=== PATIENT | female | born 1950 | race Caucasian/White ===

== ENCOUNTER 2019-11-14 08:00 | Inpatient (IN) | payer OTHER, BC ==
[2019-12-17] MEDS ORDERED: GENTAMICIN SO4 80 MG/2 ML VIAL ONE (07:50)
[2019-12-17] MEDS ORDERED: LIDOCAINE 1%-EPI 1:100,000 30 ML MDV IJ ONE (07:50)
[2019-12-17] MEDS ORDERED: THROMBIN (BOVINE) 20,000 UNIT VIAL TP ONE (07:51)
--- NOTE | 2019-12-17 08:01 | HP ---
History & Physical Update - History History: No Change - Physical Physical: No Change - Assessment Assessment: No Change - Plan Plan: No Change (Full H&P in chart from 12/11/19)
[2019-12-17] MEDS ORDERED: MIDAZOLAM HCL 2 MG/2 ML SINGLE DOSE VIAL ONE (08:08)
[2019-12-17] MEDS ORDERED: ROCURONIUM BROMIDE 50 MG/5 ML SYRINGE ONE ×2 (08:08→09:32)
[2019-12-17] MEDS ORDERED: ceFAZolin SODIUM 1 GM VIAL ONE ×2 (08:10→18:38)
[2019-12-17] MEDS ORDERED: ETOMIDATE 20 MG/10 ML AMPUL IVPUSH ONE (08:10)
[2019-12-17] MEDS ORDERED: VANCOMYCIN 1,000 MG VIAL (RESTRICTED TO ID ONLY) ONE (08:10)
[2019-12-17] MEDS ORDERED: SODIUM CHLORIDE 0.9% P/F 10 ML VIAL IJ ONE (08:42)
[2019-12-17] MEDS ORDERED: VANCOMYCIN 1,000 MG VIAL (RESTRICTED TO ID ONLY) IVPB ONE (08:45)
[2019-12-17] MEDS ORDERED: ceFAZolin SODIUM 1 GM VIAL IVPB ONE (08:47)
[2019-12-17] MEDS ORDERED: ONDANSETRON 4 MG/2 ML VIAL ONE (08:49)
[2019-12-17] MEDS ORDERED: LIDOCAINE 1%/EPI 1:100000 (50 ML MULTI DOSE VIAL) INF ONE (08:52)
[2019-12-17] MEDS ORDERED: DESFLURANE GAS 240 ML BOTTLE IH ONE (08:54)
[2019-12-17] MEDS ORDERED: THROMBIN (BOVINE) 5,000 UNIT VIAL TP ONE (09:15)
[2019-12-17] MEDS ORDERED: PHENYLEPHRINE HCL 10 MG/1 ML SINGLE DOSE VIAL ONE (09:16)
[2019-12-17] MEDS ORDERED: GENTAMICIN SO4 80 MG/2 ML VIAL IVPB ONE (09:25)
[2019-12-17] MEDS ORDERED: HYDROGEN PEROXIDE 473 ML PO ONE (09:25)
[2019-12-17] MEDS ORDERED: BACITRACIN 50,000 UNITS VIAL TP ONE (09:25)
[2019-12-17] MEDS ORDERED: PROPOFOL 20 ML ONE (09:57)
[2019-12-17] MEDS ORDERED: NEOSTIGMINE METHYLSULFATE 0.5 MG/1 ML - 10 ML MDV ONE (11:03)
[2019-12-17] MEDS ORDERED: GLYCOPYRROLATE 0.2 MG/1 ML VIAL ONE ×2 (11:03→11:25)
[2019-12-17] MEDS ORDERED: ONDANSETRON 4 MG/2 ML VIAL IVPUSH PRN ×3 (11:34→11:51)
[2019-12-17] MEDS ORDERED: diphenhydrAMINE HCL 25 MG CAPSULE (FP) PO PRN (11:34)
[2019-12-17] MEDS ORDERED: ALBUTEROL SO4 HFA INHALER IH PRN (11:38)
[2019-12-17] MEDS ORDERED: PATIENT'S OWN MEDICATION (NON-FORMULARY) (Insulin Aspart [Novolog] 100 UNIT) SQ SCH (11:45)
[2019-12-17] MEDS ORDERED: ALBUTEROL SO4 2.5/IPRATROPIUM 0.5 INH SOL 3 ML VIAL.NEB. NEB PRN (11:47)
--- NOTE | 2019-12-17 11:50 | OP ---
Operative Note - Note: Operative Date: 12/17/19 Pre-Operative Diagnosis: cervical spondylosis Operation: C4-5 corpectomy with decompresson of spondylosis and reconstruction with Peek cage and anterior plate Post-Operative Diagnosis: Same as Pre-op Surgeon: Carlton Fletcher Refrigerator Repair Technician: Bk Chaney Anesthesiologist/BRAKE ASSEMBLER: Slava Leong Anesthesia: General Estimated Blood Loss (mls): 30 Fluid Volume Replaced (mls): 1,000 Operative Report Dictated: Yes
[2019-12-17] MEDS ORDERED: PROMETHAZINE HCL 25 MG/1 ML VIAL IVPUSH PRN (11:51)
[2019-12-17] MEDS ORDERED: DEXAMETHASONE SOD PHOSPHATE 4 MG/1 ML VIAL IVPUSH PRN (11:51)
[2019-12-17] MEDS ORDERED: PROMETHAZINE HCL 25 MG/1 ML VIAL IVPB PRN (11:51)
[2019-12-17] MEDS ORDERED: ALBUTEROL SO4 0.083% IH SOL 2.5 MG/3 ML VIAL.NEB. NEB ONE (11:52)
[2019-12-17] MEDS ORDERED: ALBUTEROL SO4 0.083% IH SOL 2.5 MG/3 ML VIAL.NEB. NEB PRN (11:54)
[2019-12-17] MEDS ORDERED: LACTATED RINGERS SOLUTION 1,000 ML IV SCH (12:00)
[2019-12-17] MEDS ORDERED: HYDROmorphone *PCA* 10MG/50ML DISP.SYRIN ONE (12:22)
[2019-12-17] MEDS: HYDROmorphone *PCA* 10MG/50ML DISP.SYRIN PCA SCH (12:26)
--- NOTE | 2019-12-17 14:30 | PN ---
Progress Note, Physician - Current Medication List Current Medications: Active Medications Albuterol Sulfate (Ventolin Hfa Inhaler -) 1 puff IH Q6H PRN PRN Reason: ASTHMA Albuterol Sulfate (Ventolin 0.083% Nebulizer Soln -) 1 amp NEB Q1H PRN PRN Reason: SHORT OF BREATH/WHEEZING Last Admin: 12/17/19 11:44 Dose: 1 amp Amlodipine Besylate (Norvasc -) 10 mg PO DAILY [facility] Ascorbic Acid (Vitamin C -) 1,000 mg PO DAILY [facility] Aspirin (Ecotrin -) 81 mg PO DAILY [facility] Atorvastatin Calcium (Lipitor -) 20 mg PO HS [facility] Budesonide/Formoterol Fumarate (Symbicort 160/4.5mcg -) 1 puff IH BID [facility] Dexamethasone Sodium Phosphate (Decadron Injection -) 4 mg IVPUSH ONCE PRN PRN Reason: NAUSEA AND/OR VOMITING Diphenhydramine HCl (Benadryl -) 25 mg PO Q6H PRN PRN Reason: FOR ITCHING Diphenhydramine HCl (Benadryl Injection -) 12.5 mg IVPUSH ONCE PRN PRN Reason: FOR ITCHING Docusate Sodium (Colace -) 100 mg PO TID [facility] Fentanyl (Sublimaze Injection -) 50 mcg IVPUSH [id number] PRN PRN Reason: PAIN-PACU ORDER X 4 DOSES ONLY Ferrous Sulfate (Feosol -) 325 mg PO DAILY [facility] Folic Acid (Folic Acid -) 1 mg PO DAILY [facility] Furosemide (Lasix -) 20 mg PO DAILY [facility] Heparin Sodium (Porcine) (Heparin -) 5,000 unit SQ TID [facility] Hydromorphone HCl (Hydromorphone 10 Mg/50 Ml-Ns) 10 mg SIDE FRAMER SIDE FRAMER [facility]; Protocol Stop: 12/24/19 11:51 Last Admin: 12/17/19 12:26 Dose: 10 mg Cefazolin Sodium (Ancef 1 Gm Premixed Ivpb -) 1 gm in 50 mls @ 100 mls/hr IVPB Q8H-IV [facility] Lactated Ringer's (Lactated Ringers Solution) 1,000 ml in 1,000 mls @ 125 mls/ hr IV ASDIR [facility] Cefazolin Sodium 1 gm/ (Dextrose) 50 mls @ 100 mls/hr IVPB Q8H-IV [facility] Stop: 12/18/19 17:59 Insulin Aspart (Novolog Vial Sliding Scale -) 1 vial SQ TIDAC [facility]; Protocol Lisinopril (Prinivil) 40 mg PO DAILY [facility] Metformin HCl (Glucophage -) 1,000 mg PO BIDAC [facility] Montelukast Sodium (Singulair -) 10 mg PO HS [facility] Non-Formulary Medication (Glucosamine/Chondr Choi A Sod [Osteo Bi-Flex Caplet]) 1 each PO DAILY [facility] Non-Formulary Medication (Insulin Degludec [Tresiba]) 80 unit SQ HS [facility] Non-Formulary Medication (Prednisone [Prednisone 50 Mg Tablets]) 50 mg PO ONCE [facility] Non-Formulary Medication (Ubidecarenone [Coq-10]) 100 mg PO DAILY [facility] Ondansetron HCl (Zofran Injection) 4 mg IVPUSH Q6H PRN PRN Reason: NAUSEA Ondansetron HCl (Zofran Injection) 4 mg IVPUSH Q4H PRN PRN Reason: NAUSEA AND/OR VOMITING Ondansetron HCl (Zofran Injection) 4 mg IVPUSH Q6H PRN PRN Reason: NAUSEA AND/OR VOMITING Stop: 12/18/19 11:50 Potassium Chloride (K-Dur -) 20 meq PO DAILY [facility] Promethazine HCl (Phenergan Injection -) 12.5 mg IVPB Q6H PRN PRN Reason: NAUSEA AND/OR VOMITING - Objective Vital Signs: Vital Signs Temperature 98.8 F 12/17/19 11:42 Pulse Rate 102 H 12/17/19 12:55 Respiratory Rate 16 12/17/19 12:55 Blood Pressure 136/65 12/17/19 12:55 O2 Sat by Pulse Oximetry (%) 98 12/17/19 12:55
--- NOTE | 2019-12-17 14:46 | PN ---
Progress Note, Physician Chief Complaint: Cervical Radiculopathy History of Present Illness: Previous notes and events reviewed sleeping but arouseable to verbal and tacile stimuli POD #0 C4 and C5 corpectomy with decompression of spondylosis and reconstruction with Peek cage and anterior plate c-collar in place RENALDO drain x 1 episode of hypoxia with O2 in high 80s, currently 94% 8L facemask~pulm consult patient denies SOB, dyspnea, or chest pain - Current Medication List Current Medications: Active Medications Albuterol Sulfate (Ventolin Hfa Inhaler -) 1 puff IH Q6H PRN PRN Reason: ASTHMA Albuterol Sulfate (Ventolin 0.083% Nebulizer Soln -) 1 amp NEB Q1H PRN PRN Reason: SHORT OF BREATH/WHEEZING Last Admin: 12/17/19 11:44 Dose: 1 amp Amlodipine Besylate (Norvasc -) 10 mg PO DAILY [facility] Ascorbic Acid (Vitamin C -) 1,000 mg PO DAILY [facility] Aspirin (Ecotrin -) 81 mg PO DAILY [facility] Atorvastatin Calcium (Lipitor -) 20 mg PO HS [facility] Budesonide/Formoterol Fumarate (Symbicort 160/4.5mcg -) 1 puff IH BID [facility] Dexamethasone Sodium Phosphate (Decadron Injection -) 4 mg IVPUSH ONCE PRN PRN Reason: NAUSEA AND/OR VOMITING Diphenhydramine HCl (Benadryl -) 25 mg PO Q6H PRN PRN Reason: FOR ITCHING Diphenhydramine HCl (Benadryl Injection -) 12.5 mg IVPUSH ONCE PRN PRN Reason: FOR ITCHING Docusate Sodium (Colace -) 100 mg PO TID [facility] Fentanyl (Sublimaze Injection -) 50 mcg IVPUSH [id number] PRN PRN Reason: PAIN-PACU ORDER X 4 DOSES ONLY Ferrous Sulfate (Feosol -) 325 mg PO DAILY [facility] Folic Acid (Folic Acid -) 1 mg PO DAILY [facility] Furosemide (Lasix -) 20 mg PO DAILY [facility] Heparin Sodium (Porcine) (Heparin -) 5,000 unit SQ TID [facility] Hydromorphone HCl (Hydromorphone 10 Mg/50 Ml-Ns) 10 mg TEACHER OF THE HEARING IMPAIRED TEACHER OF THE HEARING IMPAIRED [facility]; Protocol Stop: 12/24/19 11:51 Last Admin: 12/17/19 12:26 Dose: 10 mg Cefazolin Sodium (Ancef 1 Gm Premixed Ivpb -) 1 gm in 50 mls @ 100 mls/hr IVPB Q8H-IV [facility] Lactated Ringer's (Lactated Ringers Solution) 1,000 ml in 1,000 mls @ 125 mls/ hr IV ASDIR [facility] Cefazolin Sodium 1 gm/ (Dextrose) 50 mls @ 100 mls/hr IVPB Q8H-IV [facility] Stop: 12/18/19 17:59 Insulin Aspart (Novolog Vial Sliding Scale -) 1 vial SQ TIDAC [facility]; Protocol Lisinopril (Prinivil) 40 mg PO DAILY [facility] Metformin HCl (Glucophage -) 1,000 mg PO BIDAC [facility] Montelukast Sodium (Singulair -) 10 mg PO HS [facility] Non-Formulary Medication (Glucosamine/Chondr Choi A Sod [Osteo Bi-Flex Caplet]) 1 each PO DAILY [facility] Non-Formulary Medication (Insulin Degludec [Tresiba]) 80 unit SQ HS [facility] Non-Formulary Medication (Prednisone [Prednisone 50 Mg Tablets]) 50 mg PO ONCE [facility] Non-Formulary Medication (Ubidecarenone [Coq-10]) 100 mg PO DAILY [facility] Ondansetron HCl (Zofran Injection) 4 mg IVPUSH Q6H PRN PRN Reason: NAUSEA Ondansetron HCl (Zofran Injection) 4 mg IVPUSH Q4H PRN PRN Reason: NAUSEA AND/OR VOMITING Ondansetron HCl (Zofran Injection) 4 mg IVPUSH Q6H PRN PRN Reason: NAUSEA AND/OR VOMITING Stop: 12/18/19 11:50 Potassium Chloride (K-Dur -) 20 meq PO DAILY [facility] Promethazine HCl (Phenergan Injection -) 12.5 mg IVPB Q6H PRN PRN Reason: NAUSEA AND/OR VOMITING - Objective Vital Signs: Vital Signs Temperature 98.8 F 12/17/19 11:42 Pulse Rate 102 H 12/17/19 12:55 Respiratory Rate 16 12/17/19 12:55 Blood Pressure 136/65 12/17/19 12:55 O2 Sat by Pulse Oximetry (%) 98 12/17/19 12:55 Constitutional: Yes: No Distress Eyes: Yes: Conjunctiva Clear Neck: Yes: Other (c-collar) Cardiovascular: Yes: Tachycardia Respiratory: Yes: Regular, CTA Bilaterally Gastrointestinal: Yes: Soft, Hypoactive Bowel Sounds Genitourinary: Yes: Leung Present Musculoskeletal: Yes: Muscle Weakness Extremities: Yes: WNL Edema: No Neurological: Yes: Alert Psychiatric: Yes: Alert - ....Imaging Cat Scan: Report Reviewed Problem List - Problems (1) Asthma Assessment/Plan: -Pulmonary consult -bronchodilators -Symbicort -Singulair -O2 via face mask -keep Spo2 >90% Code(s): J45.909 - UNSPECIFIED ASTHMA, UNCOMPLICATED (2) HTN (hypertension) Assessment/Plan: -Lisinopril, Amlodipine Code(s): I10 - ESSENTIAL (PRIMARY) HYPERTENSION (3) Diabetes mellitus Assessment/Plan: -Metformin -ISS -Tresiba -HgA1c Code(s): E11.9 - TYPE 2 DIABETES MELLITUS WITHOUT COMPLICATIONS (4) Cervical radiculopathy Assessment/Plan: -Neurosurgery on board -POD #0 C4 and C5 corpectomy with decompression of spondylosis and reconstruction with Peek cage and anterior plate -pain control -c-collar -RENALDO drain x 1 with <25cc sanguinous output -Cefazolin -C-spine CT scan shows s/p corpectomy c4 and c5 vertebral body and anterior fusion c3-c6 in satisfactory alignment, fusion of C6-C7 vertebral body and posterior element Code(s): M54.12 - RADICULOPATHY, CERVICAL REGION Assessment/Plan see problem list SCDs
[2019-12-17] MEDS ORDERED: metFORMIN HCL 500 MG TABLET (FP) PO SCH (16:30)
[2019-12-17] MEDS ORDERED: INSULIN SLIDING SCALE (NOVOLOG) 1 VIAL SQ SCH (16:30)
[2019-12-17] MEDS: LACTATED RINGERS SOLUTION 1,000 ML/1,000 ML INFUS.BAG IV SCH (16:45)
--- NOTE | 2019-12-17 17:41 | CONSULT ---
Consultation: REQUESTING PROVIDER: CONSULT REQUEST: We have been asked to medically evaluate this patient for ICU management post operatively. HISTORY OF PRESENT ILLNESS: 69F PMH of DM, HTN, asthma, scoliosis with cervical spine and lumbar radiculopathy who present s/p C4-5 corpectomy with decompression of spondylosis and reconstruction with Peek cage and anterior plate. She had neck pain with radiation to her left shoulder, which has gotten worse. As per chart review she has numbness and tingling in her hand as well as decreased dental cream maker strength. She was able to tolerate anesthesia well, however there was concern initially that patient would not be extubated in the operating room. However patient was brought to the ICU extubated. She had 30 ml EBL, and 1000 ml fluid volume replaced. Patient currently complains of pain in her neck and difficulty swallowing. She denies chest pain, shortness of breath, abdominal pain, nausea, vomiting, and diarrhea. REVIEW OF SYSTEMS: CONSTITUTIONAL: Absent: fever, chills, diaphoresis, generalized weakness, malaise, loss of appetite, weight change HEENT: PRESENT: throat pain, throat swelling, difficulty swallowing Absent: rhinorrhea, nasal congestion, mouth swelling, ear pain, eye pain, visual changes CARDIOVASCULAR: Absent: chest pain, syncope, palpitations, irregular heart rate, lightheadedness, peripheral edema RESPIRATORY: Absent: cough, shortness of breath, dyspnea with exertion, orthopnea, wheezing, stridor, hemoptysis GASTROINTESTINAL: Absent: abdominal pain, abdominal distension, nausea, vomiting, diarrhea, constipation, melena, hematochezia GENITOURINARY: Absent: dysuria, frequency, urgency, hesitancy, hematuria, flank pain, genital pain MUSCULOSKELETAL: Absent: myalgia, arthralgia, joint swelling, back pain, neck pain SKIN: Absent: rash, itching, pallor HEMATOLOGIC/IMMUNOLOGIC: Absent: easy bleeding, easy bruising, lymphadenopathy, frequent infections ENDOCRINE: Absent: unexplained weight gain, unexplained weight loss, heat intolerance, cold intolerance NEUROLOGIC: Absent: headache, focal weakness or paresthesias, dizziness, unsteady gait, seizure, mental status changes, bladder or bowel incontinence PSYCHIATRIC: Absent: anxiety, depression, suicidal or homicidal ideation, hallucinations. PHYSICAL EXAMINATION Vital Signs - 24 hr 12/17/19 12/17/19 12/17/19 06:56 11:42 11:55 Temperature 97.9 F 98.8 F Pulse Rate 100 H 97 H 100 H Respiratory 18 20 16 Rate Blood Pressure 150/79 159/80 151/69 O2 Sat by Pulse 93 L 90 L 95 Oximetry (%) 12/17/19 12/17/19 12/17/19 12:10 12:25 12:26 Temperature Pulse Rate 100 H 102 H 102 H Respiratory 14 14 14 Rate Blood Pressure 171/69 H 136/58 L 136/58 L O2 Sat by Pulse 90 L 90 L 92 L Oximetry (%) 12/17/19 12/17/19 12/17/19 12:40 12:55 13:10 Temperature Pulse Rate 101 H 102 H 102 H Respiratory 16 16 20 Rate Blood Pressure 132/58 L 136/65 128/57 L O2 Sat by Pulse 91 L 98 96 Oximetry (%) 12/17/19 12/17/19 12/17/19 13:25 13:40 13:50 Temperature Pulse Rate 106 H 104 H 100 H Respiratory 20 16 14 Rate Blood Pressure 128/63 117/62 120/62 O2 Sat by Pulse 96 94 L 95 Oximetry (%) 12/17/19 12/17/19 12/17/19 14:15 14:45 15:15 Temperature Pulse Rate 104 H 103 H 104 H Respiratory 14 14 14 Rate Blood Pressure 131/57 L 131/60 120/60 O2 Sat by Pulse 92 L 95 94 L Oximetry (%) 12/17/19 12/17/19 12/17/19 15:25 15:45 16:15 Temperature 98.0 F Pulse Rate 104 H 102 H 104 H Respiratory 14 16 14 Rate Blood Pressure 120/60 126/64 133/63 O2 Sat by Pulse 94 L 94 L 93 L Oximetry (%) 12/17/19 16:30 Temperature Pulse Rate 104 H Respiratory 17 Rate Blood Pressure 140/78 O2 Sat by Pulse 90 L Oximetry (%) GENERAL: Awake, alert, and fully oriented, in mild distress. HEAD: Normal with no signs of trauma. NECK: Normal range of motion, supple without lymphadenopathy, JVD, or masses. Neck brace in place. Drain in place, sanginous drainage. LUNGS: Breath sounds equal, clear to auscultation bilaterally. No wheezes, and no crackles. No accessory muscle use. HEART: Regular rate and rhythm, normal S1 and S2 without murmur, rub or gallop. ABDOMEN: Absent bowel sounds, no guarding, no rebound, no masses. No hepatomegaly or splenomegaly. MUSCULOSKELETAL: Normal range of motion at all joints. No bony deformities or tenderness. No CVA tenderness. UPPER EXTREMITIES: 2+ pulses, warm, well-perfused. No cyanosis. No clubbing. Cap refill <2 seconds. No peripheral edema. LOWER EXTREMITIES: 2+ pulses, warm, well-perfused. No calf tenderness. No peripheral edema. NEUROLOGICAL: Cranial nerves II-XII intact. 5/5 strength b/l in upper and lower extremities. PSYCHIATRIC: Cooperative. Good eye contact. SKIN: Warm, dry, normal turgor, no rashes or lesions noted. Laboratory Results - last 24 hr 12/17/19 12/17/19 12/17/19 06:40 07:24 07:45 POC Glucometer 171 Blood Type Cancelled Cancelled Antibody Screen Cancelled Crossmatch 12/17/19 08:30 POC Glucometer Blood Type B POSITIVE Antibody Screen Negative Crossmatch See Detail Active Medications Generic Name Dose Route Start Last Admin Trade Name Freq PRN Reason Stop Dose Admin Albuterol Sulfate 1 puff 12/17/19 11:38 Ventolin Hfa Inhaler - IH Q6H PRN ASTHMA Albuterol Sulfate 1 amp 12/17/19 11:54 12/17/19 11:44 Ventolin 0.083% Nebulizer Soln - NEB 1 amp Q1H PRN Administration SHORT OF BREATH/WHEEZING Amlodipine Besylate 10 mg 12/18/19 10:00 Norvasc - PO DAILY [facility] Ascorbic Acid 1,000 mg 12/18/19 10:00 Vitamin C - PO DAILY [facility] Aspirin 81 mg 12/18/19 10:00 Ecotrin - PO DAILY [facility] Atorvastatin Calcium 20 mg 12/17/19 22:00 Lipitor - PO HS [facility] Budesonide/Formoterol Fumarate 1 puff 12/17/19 22:00 Symbicort 160/4.5mcg - IH BID [facility] Dexamethasone Sodium Phosphate 4 mg 12/17/19 11:51 Decadron Injection - IVPUSH ONCE PRN NAUSEA AND/OR VOMITING Diphenhydramine HCl 25 mg 12/17/19 11:34 Benadryl - PO Q6H PRN FOR ITCHING Diphenhydramine HCl 12.5 mg 12/17/19 11:51 Benadryl Injection - IVPUSH ONCE PRN FOR ITCHING Docusate Sodium 100 mg 12/17/19 14:00 Colace - PO TID [facility] Fentanyl 50 mcg 12/17/19 11:51 Sublimaze Injection - IVPUSH [id number] PRN PAIN-PACU ORDER X 4 DOSES ONLY Ferrous Sulfate 325 mg 12/18/19 10:00 Feosol - PO DAILY [facility] Folic Acid 1 mg 12/18/19 10:00 Folic Acid - PO DAILY [facility] Furosemide 20 mg 12/18/19 10:00 Lasix - PO DAILY [facility] Heparin Sodium (Porcine) 5,000 unit 12/17/19 14:00 Heparin - SQ TID [facility] Hydromorphone HCl 10 mg 12/17/19 12:00 12/17/19 12:26 Hydromorphone 10 Mg/50 Ml-Ns MANAGER PRESENTATION 12/24/19 11:51 10 mg MANAGER PRESENTATION [facility] Administration Protocol Cefazolin Sodium 1 gm in 50 mls @ 100 mls/hr 12/17/19 18:00 Ancef 1 Gm Premixed Ivpb - IVPB Q8H-IV [facility] Lactated Ringer's 1,000 ml in 1,000 mls @ 125 mls/hr 12/17/19 11:45 12/17/19 16:45 Lactated Ringers Solution IV 0 mls ASDIR [facility] Administration Cefazolin Sodium 1 gm/ 50 mls @ 100 mls/hr 12/17/19 18:00 Dextrose IVPB 12/18/19 17:59 Q8H-IV [facility] Insulin Aspart 1 vial 12/17/19 16:30 Novolog Vial Sliding Scale - SQ TIDAC [facility] Protocol Lisinopril 40 mg 12/18/19 10:00 Prinivil PO DAILY [facility] Metformin HCl 1,000 mg 12/17/19 16:30 Glucophage - PO BIDAC [facility] Montelukast Sodium 10 mg 12/17/19 22:00 Singulair - PO HS [facility] Non-Formulary Medication 1 each 12/18/19 10:00 Glucosamine/Chondr Choi A Sod [Osteo Bi-Flex Caplet] PO DAILY [facility] Non-Formulary Medication 80 unit 12/17/19 22:00 Insulin Degludec [Tresiba] SQ HS [facility] Non-Formulary Medication 50 mg 12/17/19 11:45 Prednisone [Prednisone 50 Mg Tablets] PO ONCE [facility] Non-Formulary Medication 100 mg 12/18/19 10:00 Ubidecarenone [Coq-10] PO DAILY [facility] Ondansetron HCl 4 mg 12/17/19 11:34 Zofran Injection IVPUSH Q6H PRN NAUSEA Ondansetron HCl 4 mg 12/17/19 11:51 Zofran Injection IVPUSH Q4H PRN NAUSEA AND/OR VOMITING Ondansetron HCl 4 mg 12/17/19 11:51 Zofran Injection IVPUSH 12/18/19 11:50 Q6H PRN NAUSEA AND/OR VOMITING Potassium Chloride 20 meq 12/18/19 10:00 K-Dur - PO DAILY [facility] Promethazine HCl 12.5 mg 12/17/19 11:51 Phenergan Injection - IVPB Q6H PRN NAUSEA AND/OR VOMITING ASSESSMENT/PLAN: 69F PMH of DM, HTN, asthma, scoliosis with cervical spine and lumbar radiculopathy who present s/p C4-5 corpectomy with decompression of spondylosis and reconstruction with Peek cage and anterior plate. POD #0 Neuro -Hx of cervical spine and lumbar spine radiculopathy -POD #0 s/p C4-C5 corpectomy with decompression of spondylosis and reconstruction -Pain management as per surgical and anesthesia team: hydromorphone MANAGER PRESENTATION pump. -Patient does not describe changes in sensation at the time, however is very sleepy. Reassess in the morning and compare to baseline sensation/weakness -Neurochecks -C-Collar must stay on atleast 23 hours a day. Cardiovascular -Hx of HTN and HLD -Continue home medications: ASA, lipitor, norvasc, lisinopril -Continue to monitor Pulmonary -Patient has hx of Asthma, uses inhalers daily. Never hospitalized for asthma -Continue home meds: singulair, symbicort - ventolin inhaler and nebulizer - Encourage use of Incentive spirometer - On NC 2LPM, maintain sats >92% GI -no acute issues -Diet ordered for patient however she has difficutly with swallowing - Continue to monitor Endo - Patient has hx of DM - ISS and ACHS monitoring - Levemir 80 HS starting tomorrow night after diet has resumed Renal - No acute issues - Follow up labs in the morning - Shore is in, monitor output - D/C shore when able to ambulate -Continue lasix DVT: Heparin SQ TID F: LR @ 125 E: Monitor CMP N: Soft diabetic diet Lines: Drain in place 12/17/2019, shore in place 12/17/2019 Dispo: We will continue to follow the patient. Thank you for this consultative opportunity. Visit type - Emergency Visit Emergency Visit: Yes ED Registration Date: 12/17/19 Care time: The patient presented to the Emergency Department on the above date and was hospitalized for further evaluation of their emergent condition. - New Patient This patient is new to me today: Yes Date on this admission: 12/17/19 - Critical Care Critical Care patient: Yes Total Critical Care Time (in minutes): 35 Critical Care Statement: The care of this patient involved high complexity decision making to prevent further life threatening deterioration of the patient's condition and/or to evaluate & treat vital organ system(s) failure or risk of failure. ATTENDING PHYSICIAN STATEMENT I saw and evaluated the patient. I reviewed the resident's note and discussed the case with the resident. I agree with the resident's findings and plan as documented. SUBJECTIVE: OBJECTIVE: ASSESSMENT AND PLAN:
[2019-12-17] MEDS ORDERED: DEXTROSE 5%-WATER - 50 ML IVPB ONE (18:38)
[2019-12-17] MEDS: INSULIN SLIDING SCALE (NOVOLOG) 1 VIAL SQ SCH (18:39)
[2019-12-17] MEDS: CEFAZOLIN 1 GM in DEXTROSE 5%-WATER - 50 ML IVPB SCH (18:40)
[2019-12-17] MEDS: MONTELUKAST NA 10 MG TABLET PO SCH (22:37)
[2019-12-17] MEDS: DOCUSATE SODIUM 100 MG CAPSULE (FP) PO SCH (22:37)
[2019-12-17] MEDS: HEPARIN NA (PORCINE) 5,000 UNITS/ML 1ML VIAL SQ SCH (22:37)
[2019-12-17] MEDS: ATORVASTATIN CA 20 MG TABLET (FP) PO SCH (22:37)
[2019-12-18] MEDS: LACTATED RINGERS SOLUTION 1,000 ML/1,000 ML INFUS.BAG IV SCH ×2 (01:05→13:01)
[2019-12-18] MEDS ORDERED: ceFAZolin SODIUM 1 GM VIAL ONE ×2 (01:12→16:53)
[2019-12-18] MEDS ORDERED: DEXTROSE 5%-WATER - 50 ML IVPB ONE ×2 (01:13→16:53)
[2019-12-18] MEDS: CEFAZOLIN 1 GM in DEXTROSE 5%-WATER - 50 ML IVPB SCH ×2 (01:53→12:00)
[2019-12-18] MEDS: BUDESONIDE/FORMETEROL FUMARATE 160/4.5 mcg INHALER IH SCH ×3 (01:54→21:30)
[2019-12-18 06:33] LABS: BASO % 0.2 % (0-2.0); HEMATOCRIT 39.9 % (32.4-45.2); HEMOGLOBIN 13.3 GM/dL (10.7-15.3); LYMPH % 4.5 % (8-40); MCH 31.7 pg (25.7-33.7); MCHC 33.3 g/dl (32.0-36.0); MEAN CELL VOLUME 94.9 fl (80-96); MEAN PLT VOLUME 7.6 fl (7.5-11.1); MONO % 9.4 % (3.8-10.2); NEUT % 85.9 % (42.8-82.8); PLATELET COUNT 277 K/MM3 (134-434); RDW 13.1 % (11.6-15.6)
[2019-12-18] MEDS: DOCUSATE SODIUM 100 MG CAPSULE (FP) PO SCH ×4 (06:51→22:44)
[2019-12-18] MEDS: HEPARIN NA (PORCINE) 5,000 UNITS/ML 1ML VIAL SQ SCH ×4 (06:51→22:44)
[2019-12-18 07:09] LABS: ALBUMIN 3.6 g/dl (3.4-5.0); BILIRUBIN,TOTAL 0.4 mg/dL (0.2-1); BLOOD UREA NITROGEN 19.9 mg/dL (7-18); CALCIUM 8.7 mg/dL (8.5-10.1); CREATININE 0.8 mg/dL (0.55-1.3); MAGNESIUM 2.2 mg/dL (1.8-2.4); PHOSPHOROUS 4.2 mg/dL (2.5-4.9); POTASSIUM 4.2 mmol/L (3.5-5.1); TOT PROT 6.7 g/dl (6.4-8.2)
[2019-12-18] MEDS: INSULIN SLIDING SCALE (NOVOLOG) 1 VIAL SQ SCH ×3 (08:26→16:46)
--- NOTE | 2019-12-18 08:32 | PN ---
Progress Note (short form) - Note Progress Note: ORTHOPAEDIC SPINE SURGERY POD #2 No acute events as per RN notes. Alert. Sitting up in bed. Wearing her C-collar as instructed. Has CLINICAL REHABILITATION LIAISON pump but wasn't using it. Patient educated on importance of use with regards to frequency. Expressed full understanding. Using her incentive spirometer. C/o incisional tenderness and some dysphagia. She is on a soft diet and tolerating. Denies n/v/f/c, CP, palpitation, SOB, RODRIGUEZ, hoarseness, UE numbness/tingling Last Vital Signs Temp Pulse Resp BP Pulse Ox 98.4 F 105 H 18 142/79 94 L 12/18/19 07:56 12/18/19 07:56 12/18/19 07:56 12/18/19 07:56 12/18/19 07:56 CBC, BMP 12/18/19 05:20 12/18/19 05:20 Gen: alert. nad Neck: dressing c/d/i. No soft tissue swelling. No erythema or drainage. No palpable hematoma Neuro: GMNVI. UE surgical training specialist strength 5/5 bilat LE: SCDs bilat. Soft. NT. Problem List - Problems (1) Cervical radiculopathy Assessment/Plan: POD #2 s/p C4-5 corpectomy with decompresson of spondylosis and reconstruction with Peek cage and anterior plate - Pain Management - DVT PPX: ASA 81 mg PO, TEDs/SCDs - Incentive Spirometer - Cervical collar to be worn 23/24hrs/day (may remove while bathing or eating meals) - Mobilize with PT - Monitor/Record drain output - f/u Labs - Cont care per ICU - Downgrae to floor at ICU discretion - Trial of Void -DC planning: [facility] [place] [facility] Above plan discussed with Dr. Anish Melchor and agrees. Code(s): M54.12 - RADICULOPATHY, CERVICAL REGION (2) Diabetes mellitus Code(s): E11.9 - TYPE 2 DIABETES MELLITUS WITHOUT COMPLICATIONS (3) HTN (hypertension) Code(s): I10 - ESSENTIAL (PRIMARY) HYPERTENSION
[2019-12-18] MEDS ORDERED: ASPIRIN COATED 81 MG TABLET.EC PO SCH (10:00)
[2019-12-18] MEDS ORDERED: ASCORBIC ACID 500 MG TABLET (FP) PO SCH (10:00)
[2019-12-18] MEDS ORDERED: LISINOPRIL 20 MG TABLET (FP) PO SCH (10:00)
[2019-12-18] MEDS ORDERED: amLODIPine BESYLATE 5 MG TABLET (FP) PO SCH (10:00)
[2019-12-18] MEDS ORDERED: FUROSEMIDE 20 MG TABLET (FP) PO SCH (10:00)
[2019-12-18] MEDS ORDERED: FOLIC ACID 1 MG TABLET (FP) PO SCH (10:00)
[2019-12-18] MEDS ORDERED: PATIENT'S OWN MEDICATION (NON-FORMULARY) (Ubidecarenone [Coq-10] 100 MG) PO SCH (10:00)
[2019-12-18] MEDS ORDERED: PATIENT'S OWN MEDICATION (NON-FORMULARY) (Glucosamine/Chondr Su A Sod [Osteo Bi-Flex Caple PO SCH (10:00)
[2019-12-18] MEDS ORDERED: FERROUS SO4 325 MG TABLET (FP) PO SCH (10:00)
[2019-12-18] MEDS ORDERED: POTASSIUM CHLORIDE TABS 20 MEQ TABLET.ER (FP) PO SCH (10:00)
--- NOTE | 2019-12-18 11:37 | PN ---
Progress Note, Physician Chief Complaint: AWAKE ALERT POD #1 COLLAR FOR CERVICAL SPINE IN PLACE 6/10 PAIN INTENSITY PER PATIENT - Current Medication List Current Medications: Active Medications Albuterol Sulfate (Ventolin Hfa Inhaler -) 1 puff IH Q6H PRN PRN Reason: ASTHMA Albuterol Sulfate (Ventolin 0.083% Nebulizer Soln -) 1 amp NEB Q1H PRN PRN Reason: SHORT OF BREATH/WHEEZING Last Admin: 12/17/19 11:44 Dose: 1 amp Amlodipine Besylate (Norvasc -) 10 mg PO DAILY [facility] Last Admin: 12/18/19 10:33 Dose: 10 mg Ascorbic Acid (Vitamin C -) 1,000 mg PO DAILY [facility] Last Admin: 12/18/19 10:33 Dose: 1,000 mg Aspirin (Ecotrin -) 81 mg PO DAILY [facility] Last Admin: 12/18/19 10:47 Dose: 81 mg Atorvastatin Calcium (Lipitor -) 20 mg PO HS [facility] Last Admin: 12/17/19 22:37 Dose: 20 mg Budesonide/Formoterol Fumarate (Symbicort 160/4.5mcg -) 1 puff IH BID [facility] Last Admin: 12/18/19 10:34 Dose: 1 puff Dexamethasone Sodium Phosphate (Decadron Injection -) 4 mg IVPUSH ONCE PRN PRN Reason: NAUSEA AND/OR VOMITING Diphenhydramine HCl (Benadryl -) 25 mg PO Q6H PRN PRN Reason: FOR ITCHING Diphenhydramine HCl (Benadryl Injection -) 12.5 mg IVPUSH ONCE PRN PRN Reason: FOR ITCHING Docusate Sodium (Colace -) 100 mg PO TID [facility] Last Admin: 12/18/19 06:51 Dose: 100 mg Fentanyl (Sublimaze Injection -) 50 mcg IVPUSH [id number] PRN PRN Reason: PAIN-PACU ORDER X 4 DOSES ONLY Ferrous Sulfate (Feosol -) 325 mg PO DAILY [facility] Last Admin: 12/18/19 10:33 Dose: 325 mg Folic Acid (Folic Acid -) 1 mg PO DAILY [facility] Last Admin: 12/18/19 10:33 Dose: 1 mg Furosemide (Lasix -) 20 mg PO DAILY [facility] Last Admin: 12/18/19 10:33 Dose: 20 mg Heparin Sodium (Porcine) (Heparin -) 5,000 unit SQ TID [facility] Last Admin: 12/18/19 06:51 Dose: 5,000 unit Hydromorphone HCl (Hydromorphone 10 Mg/50 Ml-Ns) 10 mg SOLAR PROJECT COORDINATION SPECIALIST SOLAR PROJECT COORDINATION SPECIALIST [facility]; Protocol Stop: 12/24/19 11:51 Last Admin: 12/17/19 12:26 Dose: 10 mg Cefazolin Sodium 1 gm/ (Dextrose) 50 mls @ 100 mls/hr IVPB Q8H-IV [facility] Lactated Ringer's (Lactated Ringers Solution) 1,000 ml in 1,000 mls @ 125 mls/ hr IV ASDIR [facility] Last Admin: 12/18/19 01:05 Dose: 125 mls/hr Cefazolin Sodium 1 gm/ (Dextrose) 50 mls @ 100 mls/hr IVPB Q8H-IV [facility] Stop: 12/18/19 17:59 Last Admin: 12/18/19 01:53 Dose: 100 mls/hr Insulin Aspart (Novolog Vial Sliding Scale -) 1 vial SQ TIDAC [facility]; Protocol Last Admin: 12/18/19 11:27 Dose: 4 units Lisinopril (Prinivil) 40 mg PO DAILY [facility] Last Admin: 12/18/19 10:42 Dose: 40 mg Montelukast Sodium (Singulair -) 10 mg PO HS [facility] Last Admin: 12/17/19 22:37 Dose: 10 mg Non-Formulary Medication (Insulin Degludec [Tresiba]) 80 unit SQ HS [facility] Non-Formulary Medication (Prednisone [Prednisone 50 Mg Tablets]) 50 mg PO ONCE [facility] Ondansetron HCl (Zofran Injection) 4 mg IVPUSH Q6H PRN PRN Reason: NAUSEA Ondansetron HCl (Zofran Injection) 4 mg IVPUSH Q4H PRN PRN Reason: NAUSEA AND/OR VOMITING Ondansetron HCl (Zofran Injection) 4 mg IVPUSH Q6H PRN PRN Reason: NAUSEA AND/OR VOMITING Stop: 12/18/19 11:50 Potassium Chloride (K-Dur -) 20 meq PO DAILY [facility] Last Admin: 12/18/19 10:42 Dose: 20 meq Promethazine HCl (Phenergan Injection -) 12.5 mg IVPB Q6H PRN PRN Reason: NAUSEA AND/OR VOMITING - Objective Vital Signs: Vital Signs Temperature 98.4 F 12/18/19 07:56 Pulse Rate 111 H 12/18/19 10:00 Respiratory Rate 21 H 12/18/19 10:00 Blood Pressure 160/83 12/18/19 10:00 O2 Sat by Pulse Oximetry (%) 94 L 12/18/19 07:56 Constitutional: Yes: Mild Distress HENT: Yes: Other (COLLAR) Cardiovascular: Yes: Regular Rate and Rhythm Respiratory: Yes: WNL Gastrointestinal: Yes: WNL Genitourinary: Yes: WNL Musculoskeletal: Yes: Muscle Weakness Edema: No Neurological: Yes: Pre-Existing Deficit Labs: CBC, BMP 12/18/19 05:20 12/18/19 05:20 Problem List - Problems (1) Cervical radiculopathy Code(s): M54.12 - RADICULOPATHY, CERVICAL REGION (2) Diabetes mellitus Code(s): E11.9 - TYPE 2 DIABETES MELLITUS WITHOUT COMPLICATIONS (3) HTN (hypertension) Code(s): I10 - ESSENTIAL (PRIMARY) HYPERTENSION Assessment/Plan NERUOSURGERY EVAL APPRECIATED PT EVAL MONITOR BGM DVT PROPHYLAXIS PAIN CONTROL INCENTIVE SPIROMETRY
--- NOTE | 2019-12-18 12:13 | PN ---
Teaching Attending Note Name of Resident: Mine Mustafa ATTENDING PHYSICIAN STATEMENT I saw and evaluated the patient. I reviewed the resident's note and discussed the case with the resident. I agree with the resident's findings and plan as documented. SUBJECTIVE: Pt seen and examined in the ICU. On HOUSEKEEPING WORKER pump. Tolerating liquids. No fevers, chills. OBJECTIVE: Vital Signs Period Temp Pulse Resp BP Sys/Dotson Pulse Ox Last 24 Hr 97.4 F-98.4 F 100-111 12-21 117-171/57-88 90-98 Intake & Output 12/15/19 12/16/19 12/17/19 12/18/19 23:59 23:59 23:59 23:59 Intake Total 1762.5 1050 Output Total 860 75 Balance 902.5 975 Weight 76.657 kg 79.379 kg Gen: NAD in cervical collar Heart: RRR Lung: decreased breath sounds at the bases Abd: soft, nontender Ext: no edema Drain serosanguinous CBC, BMP 12/18/19 05:20 12/18/19 05:20 Active Medications Albuterol Sulfate (Ventolin Hfa Inhaler -) 1 puff IH Q6H PRN PRN Reason: ASTHMA Albuterol Sulfate (Ventolin 0.083% Nebulizer Soln -) 1 amp NEB Q1H PRN PRN Reason: SHORT OF BREATH/WHEEZING Last Admin: 12/17/19 11:44 Dose: 1 amp Amlodipine Besylate (Norvasc -) 10 mg PO DAILY [facility] Last Admin: 12/18/19 10:33 Dose: 10 mg Ascorbic Acid (Vitamin C -) 1,000 mg PO DAILY [facility] Last Admin: 12/18/19 10:33 Dose: 1,000 mg Aspirin (Ecotrin -) 81 mg PO DAILY [facility] Last Admin: 12/18/19 10:47 Dose: 81 mg Atorvastatin Calcium (Lipitor -) 20 mg PO HS [facility] Last Admin: 12/17/19 22:37 Dose: 20 mg Budesonide/Formoterol Fumarate (Symbicort 160/4.5mcg -) 1 puff IH BID [facility] Last Admin: 12/18/19 10:34 Dose: 1 puff Dexamethasone Sodium Phosphate (Decadron Injection -) 4 mg IVPUSH ONCE PRN PRN Reason: NAUSEA AND/OR VOMITING Diphenhydramine HCl (Benadryl -) 25 mg PO Q6H PRN PRN Reason: FOR ITCHING Diphenhydramine HCl (Benadryl Injection -) 12.5 mg IVPUSH ONCE PRN PRN Reason: FOR ITCHING Docusate Sodium (Colace -) 100 mg PO TID [facility] Last Admin: 12/18/19 06:51 Dose: 100 mg Fentanyl (Sublimaze Injection -) 50 mcg IVPUSH [id number] PRN PRN Reason: PAIN-PACU ORDER X 4 DOSES ONLY Ferrous Sulfate (Feosol -) 325 mg PO DAILY [facility] Last Admin: 12/18/19 10:33 Dose: 325 mg Folic Acid (Folic Acid -) 1 mg PO DAILY [facility] Last Admin: 12/18/19 10:33 Dose: 1 mg Furosemide (Lasix -) 20 mg PO DAILY [facility] Last Admin: 12/18/19 10:33 Dose: 20 mg Heparin Sodium (Porcine) (Heparin -) 5,000 unit SQ TID [facility] Last Admin: 12/18/19 06:51 Dose: 5,000 unit Hydromorphone HCl (Hydromorphone 10 Mg/50 Ml-Ns) 10 mg HOUSEKEEPING WORKER HOUSEKEEPING WORKER [facility]; Protocol Stop: 12/24/19 11:51 Last Admin: 12/17/19 12:26 Dose: 10 mg Cefazolin Sodium 1 gm/ (Dextrose) 50 mls @ 100 mls/hr IVPB Q8H-IV [facility] Lactated Ringer's (Lactated Ringers Solution) 1,000 ml in 1,000 mls @ 125 mls/ hr IV ASDIR [facility] Last Admin: 12/18/19 01:05 Dose: 125 mls/hr Cefazolin Sodium 1 gm/ (Dextrose) 50 mls @ 100 mls/hr IVPB Q8H-IV [facility] Stop: 12/18/19 17:59 Last Admin: 12/18/19 01:53 Dose: 100 mls/hr Insulin Aspart (Novolog Vial Sliding Scale -) 1 vial SQ TIDAC [facility]; Protocol Last Admin: 12/18/19 11:27 Dose: 4 units Lisinopril (Prinivil) 40 mg PO DAILY [facility] Last Admin: 12/18/19 10:42 Dose: 40 mg Montelukast Sodium (Singulair -) 10 mg PO HS [facility] Last Admin: 12/17/19 22:37 Dose: 10 mg Non-Formulary Medication (Insulin Degludec [Tresiba]) 80 unit SQ HS [facility] Non-Formulary Medication (Prednisone [Prednisone 50 Mg Tablets]) 50 mg PO ONCE [facility] Ondansetron HCl (Zofran Injection) 4 mg IVPUSH Q6H PRN PRN Reason: NAUSEA Ondansetron HCl (Zofran Injection) 4 mg IVPUSH Q4H PRN PRN Reason: NAUSEA AND/OR VOMITING Potassium Chloride (K-Dur -) 20 meq PO DAILY [facility] Last Admin: 12/18/19 10:42 Dose: 20 meq Promethazine HCl (Phenergan Injection -) 12.5 mg IVPB Q6H PRN PRN Reason: NAUSEA AND/OR VOMITING ASSESSMENT AND PLAN: Cervical Spondylosis s/p C4-C5 Corpectomy/Decompression/Reconstruction with cage and anterior plate HTN DM Asthma - pain control - incentive spirometry - monitor drain output - PO as tolerated - PT - inhaled bronchodilators as needed - DVT prophylaxis - can monitor on floor
[2019-12-18] MEDS: HYDROmorphone *PCA* 10MG/50ML DISP.SYRIN PCA SCH (12:57)
--- NOTE | 2019-12-18 15:09 | PN ---
Progress Note (short form) - Note Progress Note: Anesthesia POD#1 S/P C4,C5 Corpectomy under GA and Dilaudid PSYCHOMETRIC EXAMINER VSS, using PSYCHOMETRIC EXAMINER for pain,some N/V. Pain is not controlled yet. No complications to anesthesia seen. A/P Continue the PSYCHOMETRIC EXAMINER for today. Jael Massey MD.
--- NOTE | 2019-12-18 16:27 | PN ---
Physical Exam: SUBJECTIVE: Patient seen and examined. Pt complains of mild difficulty swallowing and but pain controlled and motor strength significantly improved. OBJECTIVE: Vital Signs Period Temp Pulse Resp BP Sys/Dotson Pulse Ox Last 24 Hr 97.4 F-99.0 F 101-111 12-21 140-160/65-96 90-95 GENERAL: Awake, alert, and fully oriented, in mild distress. HEAD: Normal with no signs of trauma. NECK: Normal range of motion, supple without lymphadenopathy, JVD, or masses. Neck brace in place. Drain in place, sanginous drainage. LUNGS: Breath sounds equal, clear to auscultation bilaterally but decreased at the bases. HEART: Regular rate and rhythm, normal S1 and S2 without murmur, rub or gallop. ABDOMEN: Absent bowel sounds, no guarding, no rebound, no masses. No hepatomegaly or splenomegaly. MUSCULOSKELETAL: Normal range of motion at all joints. No bony deformities or tenderness. No CVA tenderness. UPPER EXTREMITIES: 2+ pulses, warm, well-perfused. No cyanosis. No clubbing. Cap refill <2 seconds. No peripheral edema. LOWER EXTREMITIES: 2+ pulses, warm, well-perfused. No calf tenderness. No peripheral edema. NEUROLOGICAL: Cranial nerves II-XII intact. 5/5 strength b/l in upper and lower extremities. PSYCHIATRIC: Cooperative. Good eye contact. SKIN: Warm, dry, normal turgor, no rashes or lesions noted. Laboratory Results - last 24 hr 12/17/19 12/18/19 12/18/19 18:10 05:20 05:20 WBC 15.0 H RBC 4.20 Hgb 13.3 Hct 39.9 MCV 94.9 MCH 31.7 MCHC 33.3 RDW 13.1 Plt Count 277 MPV 7.6 Absolute Neuts (auto) 12.8 H Neutrophils % 85.9 H Lymphocytes % 4.5 L Monocytes % 9.4 Eosinophils % 0.0 Basophils % 0.2 Nucleated RBC % 0 Sodium 138 Potassium 4.2 Chloride 102 Carbon Dioxide 30 Anion Gap 6 L BUN 19.9 H Creatinine 0.8 Est GFR (CKD-EPI)AfAm 86.57 Est GFR (CKD-EPI)NonAf 74.70 POC Glucometer 220 Random Glucose 195 H Calcium 8.7 Phosphorus 4.2 Magnesium 2.2 Total Bilirubin 0.4 AST 22 ALT 37 Alkaline Phosphatase 60 Total Protein 6.7 Albumin 3.6 12/18/19 12/18/19 06:35 11:25 WBC RBC Hgb Hct MCV MCH MCHC RDW Plt Count MPV Absolute Neuts (auto) Neutrophils % Lymphocytes % Monocytes % Eosinophils % Basophils % Nucleated RBC % Sodium Potassium Chloride Carbon Dioxide Anion Gap BUN Creatinine Est GFR (CKD-EPI)AfAm Est GFR (CKD-EPI)NonAf POC Glucometer 201 218 Random Glucose Calcium Phosphorus Magnesium Total Bilirubin AST ALT Alkaline Phosphatase Total Protein Albumin Active Medications Generic Name Dose Route Start Last Admin Trade Name Freq PRN Reason Stop Dose Admin Albuterol Sulfate 1 puff 12/17/19 11:38 Ventolin Hfa Inhaler - IH Q6H PRN ASTHMA Albuterol Sulfate 1 amp 12/17/19 11:54 12/17/19 11:44 Ventolin 0.083% Nebulizer Soln - NEB 1 amp Q1H PRN Administration SHORT OF BREATH/WHEEZING Amlodipine Besylate 10 mg 12/18/19 10:00 12/18/19 10:33 Norvasc - PO 10 mg DAILY [facility] Administration Ascorbic Acid 1,000 mg 12/18/19 10:00 12/18/19 10:33 Vitamin C - PO 1,000 mg DAILY [facility] Administration Aspirin 81 mg 12/18/19 10:00 12/18/19 10:47 Ecotrin - PO 81 mg DAILY [facility] Administration Atorvastatin Calcium 20 mg 12/17/19 22:00 12/17/19 22:37 Lipitor - PO 20 mg HS [facility] Administration Budesonide/Formoterol Fumarate 1 puff 12/17/19 22:00 12/18/19 10:34 Symbicort 160/4.5mcg - IH 1 puff BID [facility] Administration Dexamethasone Sodium Phosphate 4 mg 12/17/19 11:51 Decadron Injection - IVPUSH ONCE PRN NAUSEA AND/OR VOMITING Diphenhydramine HCl 25 mg 12/17/19 11:34 Benadryl - PO Q6H PRN FOR ITCHING Diphenhydramine HCl 12.5 mg 12/17/19 11:51 Benadryl Injection - IVPUSH ONCE PRN FOR ITCHING Docusate Sodium 100 mg 12/17/19 14:00 12/18/19 14:09 Colace - PO Not Given TID [facility] Fentanyl 50 mcg 12/17/19 11:51 Sublimaze Injection - IVPUSH [id number] PRN PAIN-PACU ORDER X 4 DOSES ONLY Ferrous Sulfate 325 mg 12/18/19 10:00 12/18/19 10:33 Feosol - PO 325 mg DAILY [facility] Administration Folic Acid 1 mg 12/18/19 10:00 12/18/19 10:33 Folic Acid - PO 1 mg DAILY [facility] Administration Furosemide 20 mg 12/18/19 10:00 12/18/19 10:33 Lasix - PO 20 mg DAILY [facility] Administration Heparin Sodium (Porcine) 5,000 unit 12/17/19 14:00 12/18/19 14:10 Heparin - SQ 5,000 unit TID [facility] Administration Hydromorphone HCl 10 mg 12/17/19 12:00 12/18/19 12:57 Hydromorphone 10 Mg/50 Ml-Ns HELPDESK SPECIALIST 12/24/19 11:51 Not Given HELPDESK SPECIALIST [facility]END[facility] Protocol Cefazolin Sodium 1 gm/ 50 mls @ 100 mls/hr 12/18/19 18:00 Dextrose IVPB Q8H-IV [facility] Lactated Ringer's 1,000 ml in 1,000 mls @ 125 mls/hr 12/17/19 11:45 12/18/19 13:01 Lactated Ringers Solution IV 125 mls/hr ASDIR [facility] Administration Cefazolin Sodium 1 gm/ 50 mls @ 100 mls/hr 12/17/19 18:00 12/18/19 12:00 Dextrose IVPB 12/18/19 17:59 100 mls/hr Q8H-IV [facility] Administration Insulin Aspart 1 vial 12/17/19 18:15 12/18/19 11:27 Novolog Vial Sliding Scale - SQ 4 units TIDAC [facility] Administration Protocol Lisinopril 40 mg 12/18/19 10:00 12/18/19 10:42 Prinivil PO 40 mg DAILY [facility] Administration Montelukast Sodium 10 mg 12/17/19 22:00 12/17/19 22:37 Singulair - PO 10 mg HS [facility] Administration Non-Formulary Medication 80 unit 12/17/19 22:00 Insulin Degludec [Tresiba] SQ HS [facility] Non-Formulary Medication 50 mg 12/17/19 11:45 Prednisone [Prednisone 50 Mg Tablets] PO ONCE [facility] Ondansetron HCl 4 mg 12/17/19 11:34 12/18/19 14:11 Zofran Injection IVPUSH 4 mg Q6H PRN Administration NAUSEA Ondansetron HCl 4 mg 12/17/19 11:51 Zofran Injection IVPUSH Q4H PRN NAUSEA AND/OR VOMITING Potassium Chloride 20 meq 12/18/19 10:00 12/18/19 10:42 K-Dur - PO 20 meq DAILY [facility] Administration Promethazine HCl 12.5 mg 12/17/19 11:51 Phenergan Injection - IVPB Q6H PRN NAUSEA AND/OR VOMITING ASSESSMENT/PLAN: 69F PMH of DM, HTN, asthma, scoliosis with cervical spine and lumbar rad iculopathy who present s/p C4-5 corpectomy with decompression of spondylosis and reconstruction with Peek cage and anterior plate. POD #1 Neuro -Hx of cervical spine and lumbar spine radiculopathy -POD #1 s/p C4-C5 corpectomy with decompression of spondylosis and reconstruction -Pain management as per surgical and anesthesia team: hydromorphone HELPDESK SPECIALIST pump. -endorsed improvement of neuro symptoms s/p surgery -Neurochecks -C-Collar must stay on atleast 23 hours a day. Cardiovascular -Hx of HTN and HLD -Continue home medications: ASA, lipitor, norvasc, lisinopril -Continue to monitor Pulmonary -Patient has hx of Asthma, uses inhalers daily. Never hospitalized for asthma -Continue home meds: singulair, symbicort - ventolin inhaler and nebulizer - Encourage use of Incentive spirometer - On NC 2LPM, maintain sats >92% GI -no acute issues -tolerating soft diet. no gas or BM yet - Continue to monitor Endo - Patient has hx of DM - ISS and ACHS monitoring Renal - No acute issues - bun/cr 19.9/0.8 - D/C shore when able to ambulate - Continue lasix DVT: Heparin SQ TID F: LR @ 125 E: Monitor CMP N: Soft diabetic diet Lines: Drain in place 12/17/2019, shore in place 12/17/2019 Dispo: transfer to [facility] surge Visit type - Emergency Visit Emergency Visit: Yes ED Registration Date: 12/17/19 Care time: The patient presented to the Emergency Department on the above date and was hospitalized for further evaluation of their emergent condition. - New Patient This patient is new to me today: Yes Date on this admission: 12/18/19 - Critical Care Critical Care patient: Yes Total Critical Care Time (in minutes): 36 Critical Care Statement: The care of this patient involved high complexity decision making to prevent further life threatening deterioration of the patient's condition and/or to evaluate & treat vital organ system(s) failure or risk of failure. ATTENDING PHYSICIAN STATEMENT I saw and evaluated the patient. I reviewed the resident's note and discussed the case with the resident. I agree with the resident's findings and plan as documented. SUBJECTIVE: OBJECTIVE: ASSESSMENT AND PLAN:
[2019-12-18] MEDS ORDERED: CEFAZOLIN 1 GM in DEXTROSE 5%-WATER - 50 ML IVPB SCH (18:00)
[2019-12-18] MEDS: ATORVASTATIN CA 20 MG TABLET (FP) PO SCH (21:30)
[2019-12-18] MEDS: MONTELUKAST NA 10 MG TABLET PO SCH (21:30)
[2019-12-18] MEDS ORDERED: DEXAMETHASONE SOD PHOSPHATE 4 MG/1 ML VIAL IVPUSH PRN (22:10)
[2019-12-18] MEDS ORDERED: PROMETHAZINE HCL 25 MG/1 ML VIAL IVPB PRN (22:10)
[2019-12-18] MEDS ORDERED: ALBUTEROL SO4 HFA INHALER IH PRN (22:10)
[2019-12-18] MEDS ORDERED: HYDROmorphone *PCA* 10MG/50ML DISP.SYRIN PCA SCH (22:10)
[2019-12-18] MEDS ORDERED: PATIENT'S OWN MEDICATION (NON-FORMULARY) (Prednisone [Prednisone 50 Mg Tablets] 50 MG) PO SCH (22:10)
[2019-12-18] MEDS ORDERED: ONDANSETRON 4 MG/2 ML VIAL IVPUSH PRN ×2 (22:10)
[2019-12-18] MEDS ORDERED: diphenhydrAMINE HCL 25 MG CAPSULE (FP) PO PRN (22:10)
[2019-12-18] MEDS: PATIENT'S OWN MEDICATION (NON-FORMULARY) (Prednisone [Prednisone 50 Mg Tablets] 50 MG) PO SCH (22:43)
[2019-12-18] MEDS: INSULIN DEGLUDEC 80 UNIT SQ SCH ×2 (22:44→23:25)
[2019-12-19] MEDS ORDERED: DEXTROSE 5%-WATER - 50 ML IVPB ONE ×3 (01:17→17:24)
[2019-12-19] MEDS ORDERED: ceFAZolin SODIUM 1 GM VIAL ONE ×3 (01:17→17:24)
[2019-12-19] MEDS: CEFAZOLIN 1 GM in DEXTROSE 5%-WATER - 50 ML IVPB SCH ×3 (01:54→17:33)
[2019-12-19] MEDS: LACTATED RINGERS SOLUTION 1,000 ML/1,000 ML INFUS.BAG IV SCH ×2 (01:54→06:23)
[2019-12-19] MEDS: ALBUTEROL SO4 0.083% IH SOL 2.5 MG/3 ML VIAL.NEB. NEB PRN ×2 (02:21→08:47)
[2019-12-19] MEDS: DOCUSATE SODIUM 100 MG CAPSULE (FP) PO SCH ×3 (06:31→22:05)
[2019-12-19] MEDS: HEPARIN NA (PORCINE) 5,000 UNITS/ML 1ML VIAL SQ SCH ×3 (06:31→22:07)
[2019-12-19] MEDS: INSULIN SLIDING SCALE (NOVOLOG) 1 VIAL SQ SCH ×3 (06:31→17:47)
[2019-12-19 07:50] LABS: BASO % 0.3 % (0-2.0); HEMATOCRIT 37.8 % (32.4-45.2); HEMOGLOBIN 12.6 GM/dL (10.7-15.3); LYMPH % 5.1 % (8-40); MCH 31.5 pg (25.7-33.7); MCHC 33.3 g/dl (32.0-36.0); MEAN CELL VOLUME 94.7 fl (80-96); MEAN PLT VOLUME 7.9 fl (7.5-11.1); MONO % 9.5 % (3.8-10.2); NEUT % 85.1 % (42.8-82.8); PLATELET COUNT 251 K/MM3 (134-434); RBC 3.99 M/mm3 (3.60-5.2); RDW 13.1 % (11.6-15.6)
--- NOTE | 2019-12-19 07:55 | PN ---
Progress Note (short form) - Note Progress Note: NEUROSURGERY POD #2 Pateint transferred to floor yesterday. No acute events as per RN notes. Alert. Sitting up in bed. Wearing her C-collar as instructed 23/24h. Still c/o incisional tenderness and some mild dysphagia but feels like that is has improved over the past 24hrs Using her incentive spirometer as directed. Hasn't been OOB yet. Madhu remains in. She is on a soft diet and tolerating. Improvement in UE motor strength s/p surgical procedure. Denies n/v/f/c, CP, palpitation, SOB, RODRIGUEZ, hoarseness, UE numbness/tingling Last Vital Signs Temp Pulse Resp BP Pulse Ox 98.7 F 111 H 20 148/83 92 L 12/19/19 07:21 12/19/19 07:21 12/19/19 07:21 12/19/19 07:21 12/19/19 00:26 PE Gen: alert. nad Neck: dressing c/d/i. No soft tissue swelling. No erythema or drainage. No palpable hematoma Neuro: GMNVI. UE breaker up strength 5/5 bilat. FLex/Extension 5/5. No sensory deficits. LE: SCDs bilat. Soft. NT. Problem List - Problems (1) Cervical radiculopathy Assessment/Plan: POD #2 s/p C4-5 corpectomy with decompresson of spondylosis and reconstruction with Peek cage and anterior plate - Pain Management - DVT PPX: ASA 81 mg PO, TEDs/SCDs - Incentive Spirometer - Cervical collar to be worn 23/24hrs/day (may remove while bathing or eating meals) - Mobilize with PT - Begin trial of void - f/u Labs - Pain management per Anesthesia team: Hydromorphone ELECTRICAL MANUFACTURING TECHNICIAN pump Above plan discussed with Dr. Fletcher and agrees. Code(s): M54.12 - RADICULOPATHY, CERVICAL REGION (2) Diabetes mellitus Code(s): E11.9 - TYPE 2 DIABETES MELLITUS WITHOUT COMPLICATIONS (3) HTN (hypertension) Code(s): I10 - ESSENTIAL (PRIMARY) HYPERTENSION
[2019-12-19 08:13] LABS: ALBUMIN 3.3 g/dl (3.4-5.0); BILIRUBIN,TOTAL 0.8 mg/dL (0.2-1); BLOOD UREA NITROGEN 15.4 mg/dL (7-18); CALCIUM 8.9 mg/dL (8.5-10.1); CREATININE 0.6 mg/dL (0.55-1.3); MAGNESIUM 2.2 mg/dL (1.8-2.4); PHOSPHOROUS 2.4 mg/dL (2.5-4.9); TOT PROT 6.4 g/dl (6.4-8.2)
--- NOTE | 2019-12-19 08:26 | PN ---
Progress Note, Physician - Current Medication List Current Medications: Active Medications Albuterol Sulfate (Ventolin 0.083% Nebulizer Soln -) 1 amp NEB Q1H PRN PRN Reason: SHORT OF BREATH/WHEEZING Last Admin: 12/19/19 02:21 Dose: 1 amp Albuterol Sulfate (Ventolin Hfa Inhaler -) 1 puff IH Q6H PRN PRN Reason: ASTHMA Amlodipine Besylate (Norvasc -) 10 mg PO DAILY [facility] Ascorbic Acid (Vitamin C -) 1,000 mg PO DAILY [facility] Aspirin (Ecotrin -) 81 mg PO DAILY [facility] Atorvastatin Calcium (Lipitor -) 20 mg PO HS [facility] Budesonide/Formoterol Fumarate (Symbicort 160/4.5mcg -) 1 puff IH BID [facility] Diphenhydramine HCl (Benadryl -) 25 mg PO Q6H PRN PRN Reason: FOR ITCHING Docusate Sodium (Colace -) 100 mg PO TID [facility] Last Admin: 12/19/19 06:31 Dose: 100 mg Ferrous Sulfate (Feosol -) 325 mg PO DAILY [facility] Folic Acid (Folic Acid -) 1 mg PO DAILY [facility] Furosemide (Lasix -) 20 mg PO DAILY [facility] Heparin Sodium (Porcine) (Heparin -) 5,000 unit SQ TID [facility] Last Admin: 12/19/19 06:31 Dose: 5,000 unit Cefazolin Sodium 1 gm/ (Dextrose) 50 mls @ 100 mls/hr IVPB Q8H-IV [facility] Last Admin: 12/19/19 01:54 Dose: 100 mls/hr Lactated Ringer's (Lactated Ringers Solution) 1,000 ml in 1,000 mls @ 125 mls/ hr IV ASDIR [facility] Last Admin: 12/19/19 06:23 Dose: Not Given Insulin Aspart (Novolog Vial Sliding Scale -) 1 vial SQ TIDAC [facility]; Protocol Last Admin: 12/19/19 06:31 Dose: 2 units Lisinopril (Prinivil) 40 mg PO DAILY [facility] Montelukast Sodium (Singulair -) 10 mg PO HS [facility] Non-Formulary Medication (Insulin Degludec [Tresiba]) 80 unit SQ HS [facility] Non-Formulary Medication (Prednisone [Prednisone 50 Mg Tablets]) 50 mg PO ONCE [facility] Ondansetron HCl (Zofran Injection) 4 mg IVPUSH Q6H PRN PRN Reason: NAUSEA Potassium Chloride (K-Dur -) 20 meq PO DAILY [facility] Promethazine HCl (Phenergan Injection -) 12.5 mg IVPB Q6H PRN PRN Reason: NAUSEA AND/OR VOMITING - Objective Vital Signs: Vital Signs Temperature 98.7 F 12/19/19 07:21 Pulse Rate 111 H 12/19/19 07:21 Respiratory Rate 20 12/19/19 07:21 Blood Pressure 148/83 12/19/19 07:21 O2 Sat by Pulse Oximetry (%) 92 L 12/19/19 00:26 Neck: Yes: Other (CERVICAL COLLAR SCAR NO BLEEDING) Cardiovascular: Yes: S1, S2 Respiratory: Yes: Regular, CTA Bilaterally Gastrointestinal: Yes: Normal Bowel Sounds, Soft. No: Tenderness Labs: CBC, BMP 12/19/19 06:55 12/19/19 06:55 Problem List - Problems (1) Cervical radiculopathy Assessment/Plan: -Neurosurgery on board -S/P C4 and C5 corpectomy with decompression of spondylosis and reconstruction with Peek cage and anterior plate -pain control -c-collar -C-spine CT scan shows s/p corpectomy c4 and c5 vertebral body and anterior fusion c3-c6 in satisfactory alignment, fusion of C6-C7 vertebral body and posterior element Code(s): M54.12 - RADICULOPATHY, CERVICAL REGION Code(s): M54.12 - RADICULOPATHY, CERVICAL REGION (2) Asthma Assessment/Plan: -Pulmonary consult -bronchodilators -Symbicort -Singulair -O2 via face mask -keep Spo2 >90% Code(s): J45.909 - UNSPECIFIED ASTHMA, UNCOMPLICATED (3) Diabetes mellitus Assessment/Plan: -Metformin -ISS -Tresiba -HgA1c Code(s): E11.9 - TYPE 2 DIABETES MELLITUS WITHOUT COMPLICATIONS (4) HTN (hypertension) Assessment/Plan: -Lisinopril, Amlodipine Code(s): I10 - ESSENTIAL (PRIMARY) HYPERTENSION
--- NOTE | 2019-12-19 08:45 | PN ---
Progress Note (short form) - Note Progress Note: Receiving a BD TX. 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 Reports some wheezing this AM. No acute events overnight. OBJECTIVE: Intake & Output 12/16/19 12/17/19 12/18/19 12/19/19 23:59 23:59 23:59 23:59 Intake Total 1762.5 2700 1050 Output Total 860 1375 Balance 902.5 1325 1050 Weight 169 lb 175 lb Last Vital Signs Temp Pulse Resp BP Pulse Ox 98.7 F 111 H 20 148/83 92 L 12/19/19 07:21 12/19/19 07:21 12/19/19 07:21 12/19/19 07:21 12/19/19 00:26 Active Medications Albuterol Sulfate (Ventolin 0.083% Nebulizer Soln -) 1 amp NEB Q1H PRN PRN Reason: SHORT OF BREATH/WHEEZING Last Admin: 12/19/19 02:21 Dose: 1 amp Albuterol Sulfate (Ventolin Hfa Inhaler -) 1 puff IH Q6H PRN PRN Reason: ASTHMA Amlodipine Besylate (Norvasc -) 10 mg PO DAILY [facility] Ascorbic Acid (Vitamin C -) 1,000 mg PO DAILY [facility] Aspirin (Ecotrin -) 81 mg PO DAILY [facility] Atorvastatin Calcium (Lipitor -) 20 mg PO HS [facility] Budesonide/Formoterol Fumarate (Symbicort 160/4.5mcg -) 2 puff IH BID [facility] Diphenhydramine HCl (Benadryl -) 25 mg PO Q6H PRN PRN Reason: FOR ITCHING Docusate Sodium (Colace -) 100 mg PO TID [facility] Last Admin: 12/19/19 06:31 Dose: 100 mg Ferrous Sulfate (Feosol -) 325 mg PO DAILY [facility] Folic Acid (Folic Acid -) 1 mg PO DAILY [facility] Furosemide (Lasix -) 20 mg PO DAILY [facility] Heparin Sodium (Porcine) (Heparin -) 5,000 unit SQ TID [facility] Last Admin: 12/19/19 06:31 Dose: 5,000 unit Cefazolin Sodium 1 gm/ (Dextrose) 50 mls @ 100 mls/hr IVPB Q8H-IV [facility] Last Admin: 12/19/19 01:54 Dose: 100 mls/hr Lactated Ringer's (Lactated Ringers Solution) 1,000 ml in 1,000 mls @ 125 mls/ hr IV ASDIR [facility] Last Admin: 12/19/19 06:23 Dose: Not Given Insulin Aspart (Novolog Vial Sliding Scale -) 1 vial SQ TIDAC [facility]; Protocol Last Admin: 12/19/19 06:31 Dose: 2 units Lisinopril (Prinivil) 40 mg PO DAILY [facility] Montelukast Sodium (Singulair -) 10 mg PO HS [facility] Non-Formulary Medication (Insulin Degludec [Tresiba]) 80 unit SQ HS [facility] Non-Formulary Medication (Prednisone [Prednisone 50 Mg Tablets]) 50 mg PO ONCE [facility] Ondansetron HCl (Zofran Injection) 4 mg IVPUSH Q6H PRN PRN Reason: NAUSEA Potassium Chloride (K-Dur -) 20 meq PO DAILY [facility] Promethazine HCl (Phenergan Injection -) 12.5 mg IVPB Q6H PRN PRN Reason: NAUSEA AND/OR VOMITING Gen: NAD in cervical collar Heart: RRR Lung: decreased breath sounds at the bases, scattered rhonchi Abd: soft, nontender Ext: no edema Laboratory Results - last 24 hr 12/18/19 12/18/19 12/19/19 11:25 16:34 06:29 WBC RBC Hgb Hct MCV MCH MCHC RDW Plt Count MPV Absolute Neuts (auto) Neutrophils % Lymphocytes % Monocytes % Eosinophils % Basophils % Nucleated RBC % Sodium Potassium Chloride Carbon Dioxide Anion Gap BUN Creatinine Est GFR (CKD-EPI)AfAm Est GFR (CKD-EPI)NonAf POC Glucometer 218 212 193 Random Glucose Calcium Phosphorus Magnesium Total Bilirubin AST ALT Alkaline Phosphatase Total Protein Albumin 12/19/19 12/19/19 06:55 06:55 WBC 16.0 H RBC 3.99 Hgb 12.6 Hct 37.8 MCV 94.7 MCH 31.5 MCHC 33.3 RDW 13.1 Plt Count 251 MPV 7.9 Absolute Neuts (auto) 13.6 H Neutrophils % 85.1 H Lymphocytes % 5.1 L Monocytes % 9.5 Eosinophils % 0.0 Basophils % 0.3 Nucleated RBC % 0 Sodium 141 Potassium 4.0 Chloride 102 Carbon Dioxide 33 H Anion Gap 5 L BUN 15.4 Creatinine 0.6 Est GFR (CKD-EPI)AfAm 107.03 Est GFR (CKD-EPI)NonAf 92.35 POC Glucometer Random Glucose 186 H Calcium 8.9 Phosphorus 2.4 L Magnesium 2.2 Total Bilirubin 0.8 AST 15 ALT 26 Alkaline Phosphatase 56 Total Protein 6.4 Albumin 3.3 L ASSESSMENT AND PLAN: Cervical Spondylosis s/p C4-C5 Corpectomy/Decompression/Reconstruction with cage and anterior plate HTN DM Asthma - pain control - incentive spirometry - monitor drain output - PO as tolerated - PT - inhaled bronchodilators as needed - DVT prophylaxis - Symbicort BID Dr Pearson
[2019-12-19] MEDS ORDERED: ASCORBIC ACID 500 MG TABLET (FP) PO SCH (10:00)
[2019-12-19] MEDS ORDERED: LISINOPRIL 20 MG TABLET (FP) PO SCH (10:00)
[2019-12-19] MEDS ORDERED: FUROSEMIDE 20 MG TABLET (FP) PO SCH (10:00)
[2019-12-19] MEDS ORDERED: ASPIRIN COATED 81 MG TABLET.EC PO SCH (10:00)
[2019-12-19] MEDS ORDERED: amLODIPine BESYLATE 10 MG TABLET (FP) PO SCH (10:00)
[2019-12-19] MEDS ORDERED: POTASSIUM CHLORIDE TABS 20 MEQ TABLET.ER (FP) PO SCH (10:00)
[2019-12-19] MEDS ORDERED: FERROUS SO4 325 MG TABLET (FP) PO SCH (10:00)
[2019-12-19] MEDS ORDERED: BUDESONIDE/FORMETEROL FUMARATE 160/4.5 mcg INHALER IH SCH (10:00)
[2019-12-19] MEDS ORDERED: FOLIC ACID 1 MG TABLET (FP) PO SCH (10:00)
--- NOTE | 2019-12-19 10:59 | PN ---
Progress Note (short form) - Note Progress Note: 69F POD#2 for C4,C5 corpectomy under GETA with IV CITY ASSESSOR. This am pt. doing well. Pain well controlled. Continue with IV CITY ASSESSOR.
[2019-12-19] MEDS: BUDESONIDE/FORMETEROL FUMARATE 160/4.5 mcg INHALER IH SCH ×3 (12:33→22:07)
[2019-12-19] MEDS ORDERED: oxyCODONE HCL 5 MG TABLET PO PRN ×2 (12:34)
[2019-12-19] MEDS ORDERED: MONTELUKAST NA 10 MG TABLET PO SCH (22:00)
[2019-12-19] MEDS ORDERED: ATORVASTATIN CA 20 MG TABLET (FP) PO SCH (22:00)
[2019-12-19] MEDS ORDERED: INSULIN DEGLUDEC 80 UNIT SQ SCH (22:00)
[2019-12-20] MEDS ORDERED: DEXTROSE 5%-WATER - 50 ML IVPB ONE ×3 (01:38→17:35)
[2019-12-20] MEDS ORDERED: ceFAZolin SODIUM 1 GM VIAL ONE ×3 (01:38→17:34)
[2019-12-20] MEDS: CEFAZOLIN 1 GM in DEXTROSE 5%-WATER - 50 ML IVPB SCH ×3 (02:07→17:48)
[2019-12-20] MEDS: INSULIN SLIDING SCALE (NOVOLOG) 1 VIAL SQ SCH ×3 (06:49→17:49)
[2019-12-20] MEDS: DOCUSATE SODIUM 100 MG CAPSULE (FP) PO SCH ×3 (06:50→21:29)
[2019-12-20] MEDS: HEPARIN NA (PORCINE) 5,000 UNITS/ML 1ML VIAL SQ SCH (06:50)
--- NOTE | 2019-12-20 08:30 | PN ---
Progress Note, Physician - Current Medication List Current Medications: Active Medications Albuterol Sulfate (Ventolin 0.083% Nebulizer Soln -) 1 amp NEB Q1H PRN PRN Reason: SHORT OF BREATH/WHEEZING Last Admin: 12/19/19 08:47 Dose: 1 amp Albuterol Sulfate (Ventolin Hfa Inhaler -) 1 puff IH Q6H PRN PRN Reason: ASTHMA Amlodipine Besylate (Norvasc -) 10 mg PO DAILY [facility] Last Admin: 12/19/19 09:42 Dose: 10 mg Ascorbic Acid (Vitamin C -) 1,000 mg PO DAILY [facility] Last Admin: 12/19/19 09:43 Dose: 1,000 mg Aspirin (Ecotrin -) 81 mg PO DAILY [facility] Last Admin: 12/19/19 09:43 Dose: 81 mg Atorvastatin Calcium (Lipitor -) 20 mg PO HS [facility] Last Admin: 12/19/19 22:05 Dose: 20 mg Budesonide/Formoterol Fumarate (Symbicort 160/4.5mcg -) 2 puff IH BID [facility] Last Admin: 12/19/19 22:07 Dose: 2 puff Diphenhydramine HCl (Benadryl -) 25 mg PO Q6H PRN PRN Reason: FOR ITCHING Docusate Sodium (Colace -) 100 mg PO TID [facility] Last Admin: 12/20/19 06:50 Dose: 100 mg Ferrous Sulfate (Feosol -) 325 mg PO DAILY [facility] Last Admin: 12/19/19 09:42 Dose: 325 mg Folic Acid (Folic Acid -) 1 mg PO DAILY [facility] Last Admin: 12/19/19 09:41 Dose: 1 mg Furosemide (Lasix -) 20 mg PO DAILY [facility] Last Admin: 12/19/19 09:43 Dose: 20 mg Heparin Sodium (Porcine) (Heparin -) 5,000 unit SQ TID [facility] Last Admin: 12/20/19 06:50 Dose: 5,000 unit Cefazolin Sodium 1 gm/ (Dextrose) 50 mls @ 100 mls/hr IVPB Q8H-IV [facility] Last Admin: 12/20/19 02:07 Dose: 100 mls/hr Insulin Aspart (Novolog Vial Sliding Scale -) 1 vial SQ TIDAC [facility]; Protocol Last Admin: 12/20/19 06:49 Dose: 2 units Lisinopril (Prinivil) 40 mg PO DAILY [facility] Last Admin: 12/19/19 09:42 Dose: 40 mg Montelukast Sodium (Singulair -) 10 mg PO HS [facility] Last Admin: 12/19/19 22:05 Dose: 10 mg Non-Formulary Medication (Insulin Degludec [Tresiba]) 80 unit SQ HS [facility] Non-Formulary Medication (Prednisone [Prednisone 50 Mg Tablets]) 50 mg PO ONCE [facility] Ondansetron HCl (Zofran Injection) 4 mg IVPUSH Q6H PRN PRN Reason: NAUSEA Oxycodone HCl (Roxicodone -) 5 mg PO Q4H PRN PRN Reason: PAIN LEVEL 1-5 Last Admin: 12/19/19 17:31 Dose: 5 mg Oxycodone HCl (Roxicodone -) 10 mg PO Q4H PRN PRN Reason: PAIN LEVEL 6-10 Last Admin: 12/19/19 22:05 Dose: 10 mg Potassium Chloride (K-Dur -) 20 meq PO DAILY [facility] Last Admin: 12/19/19 09:43 Dose: 20 meq Promethazine HCl (Phenergan Injection -) 12.5 mg IVPB Q6H PRN PRN Reason: NAUSEA AND/OR VOMITING - Objective Vital Signs: Vital Signs Temperature 97.9 F 12/20/19 06:00 Pulse Rate 61 12/20/19 06:00 Respiratory Rate 18 12/20/19 06:00 Blood Pressure 160/97 12/20/19 06:00 O2 Sat by Pulse Oximetry (%) 95 12/19/19 21:00 HENT: Yes: Other (HEMATOMA NECK) Cardiovascular: Yes: S1, S2 Respiratory: Yes: Diminished, On Nasal O2 Gastrointestinal: Yes: Normal Bowel Sounds, Soft Labs: CBC, BMP 12/19/19 06:55 12/19/19 06:55 Problem List - Problems (1) Hematoma complicating a procedure Assessment/Plan: WITH HOARSENESS IV SOLUMEDROL ANESTHESIA AND ICU EVAL MONITOR Code(s): ICY9017 - (2) Asthma Assessment/Plan: -Pulmonary consult -bronchodilators -Symbicort -Singulair -O2 via face mask -keep Spo2 >90% Code(s): J45.909 - UNSPECIFIED ASTHMA, UNCOMPLICATED (3) Cervical radiculopathy Assessment/Plan: -Neurosurgery on board -S/P C4 and C5 corpectomy with decompression of spondylosis and reconstruction with Peek cage and anterior plate -pain control -c-collar -C-spine CT scan shows s/p corpectomy c4 and c5 vertebral body and anterior fusion c3-c6 in satisfactory alignment, fusion of C6-C7 vertebral body and posterior element Code(s): M54.12 - RADICULOPATHY, CERVICAL REGION Code(s): M54.12 - RADICULOPATHY, CERVICAL REGION (4) Diabetes mellitus Assessment/Plan: -Metformin -ISS -Tresiba -HgA1c Code(s): E11.9 - TYPE 2 DIABETES MELLITUS WITHOUT COMPLICATIONS (5) HTN (hypertension) Assessment/Plan: -Lisinopril, Amlodipine Code(s): I10 - ESSENTIAL (PRIMARY) HYPERTENSION (6) Status post fall Assessment/Plan: CT HEAD NAD Code(s): Z91.81 - HISTORY OF FALLING
--- NOTE | 2019-12-20 09:43 | PN ---
Progress Note (short form) - Note Progress Note: POD#3 Pt with complaints of increased difficulty swallowing and hoarse voice. No increase in SOB, she has asthma and uses inhalers. Vital Signs Period Temp Pulse Resp BP Sys/Dotson Pulse Ox Last 24 Hr 97.6 F-98.8 F 61-123 18-22 145-165/80-99 95-95 GEN: A&0x3, NAD Neck: with firmness and ecchymosis, palpable mass to incision approximately 2x2cm around the length and lateral to the incision. No stridor. [place] collar in place. Lungs; mild course BS CV: RR tachycardia Neuro: moving all ext x 4, ambulating CBC, BMP 02/06/ 06:55 12/19/ 06:55 CT scan: increase of mid anterior and prevertebral neck swelling as compared to post op ct scan A/P: 69 yo female s/p C4/5 corpectomy with ACDF, new mass most likely hematoma Spoke with Dr. Fletcher At bedside with Dr. Prince and the ICU residents for transfer to the ICU. IV steroids given Spoke with anesthesia to evaluate the patient and her respiratory status Held heparin SQ/aspirin Npo, cbc/chem and INR/PT to be drawn
[2019-12-20] MEDS ORDERED: PROMETHAZINE HCL 25 MG/1 ML VIAL IVPB PRN (09:46)
[2019-12-20] MEDS ORDERED: PATIENT'S OWN MEDICATION (NON-FORMULARY) (Prednisone [Prednisone 50 Mg Tablets] 50 MG) PO SCH (09:46)
[2019-12-20] MEDS ORDERED: ONDANSETRON 4 MG/2 ML VIAL IVPUSH PRN (09:46)
[2019-12-20] MEDS ORDERED: ALBUTEROL SO4 0.083% IH SOL 2.5 MG/3 ML VIAL.NEB. NEB PRN (09:46)
[2019-12-20] MEDS ORDERED: oxyCODONE HCL 5 MG TABLET PO PRN (09:46)
[2019-12-20] MEDS ORDERED: ALBUTEROL SO4 HFA INHALER IH PRN (09:46)
[2019-12-20] MEDS ORDERED: methylPREDNISolone NA SUCC 125 MG/2 ML VIAL IVPUSH ONE (09:46)
[2019-12-20] MEDS ORDERED: diphenhydrAMINE HCL 25 MG CAPSULE (FP) PO PRN (09:46)
[2019-12-20] MEDS ORDERED: NITROGLYCERIN SUBLINGUAL 1/200 0.3 MG BTL SL ONE (09:52)
--- NOTE | 2019-12-20 11:18 | PN ---
Teaching Attending Note Name of Resident: Mony Diaz ATTENDING PHYSICIAN STATEMENT I saw and evaluated the patient. I reviewed the resident's note and discussed the case with the resident. I agree with the resident's findings and plan as documented. SUBJECTIVE: Transferred to ICU due to change in voice character and concern for stridor. Awake and alert. Reports that her breathing is slightly more labored than yesterday. CT: Increase in hematoma size / airway is patent OBJECTIVE: Intake & Output 12/17/19 12/18/19 12/19/19 12/20/19 23:59 23:59 23:59 23:59 Intake Total 1762.5 2700 1250 Output Total 860 1375 2300 1100 Balance 902.5 1325 -1050 -1100 Weight 175 lb 169 lb Last Vital Signs Temp Pulse Resp BP Pulse Ox 98.1 F 119 H 22 H 153/87 95 12/20/19 09:19 12/20/19 09:19 12/20/19 09:19 12/20/19 09:19 12/20/19 09:00 Active Medications Albuterol Sulfate (Ventolin 0.083% Nebulizer Soln -) 1 amp NEB Q1H PRN PRN Reason: SHORT OF BREATH/WHEEZING Albuterol Sulfate (Ventolin Hfa Inhaler -) 1 puff IH Q6H PRN PRN Reason: ASTHMA Amlodipine Besylate (Norvasc -) 10 mg PO DAILY [facility] Ascorbic Acid (Vitamin C -) 1,000 mg PO DAILY [facility] Atorvastatin Calcium (Lipitor -) 20 mg PO HS [facility] Budesonide/Formoterol Fumarate (Symbicort 160/4.5mcg -) 2 puff IH BID [facility] Chlorhexidine Gluconate (Hibiclens For Decolonization -) 1 applic TP HS [facility] Diphenhydramine HCl (Benadryl -) 25 mg PO Q6H PRN PRN Reason: FOR ITCHING Docusate Sodium (Colace -) 100 mg PO TID [facility] Ferrous Sulfate (Feosol -) 325 mg PO DAILY [facility] Folic Acid (Folic Acid -) 1 mg PO DAILY [facility] Furosemide (Lasix -) 20 mg PO DAILY [facility] Cefazolin Sodium 1 gm/ (Dextrose) 50 mls @ 100 mls/hr IVPB Q8H-IV [facility] Insulin Aspart (Novolog Vial Sliding Scale -) 1 vial SQ TIDAC [facility]; Protocol Lisinopril (Prinivil) 40 mg PO DAILY [facility] Methylprednisolone Sodium Succinate (Solu-Medrol -) 125 mg IVPUSH ONCE ONE Stop: 12/20/19 09:47 Montelukast Sodium (Singulair -) 10 mg PO HS [facility] Mupirocin (Bactroban Ointment (For Decolonization) -) 1 applic NS BID [facility] Stop: 12/25/19 09:59 Non-Formulary Medication (Insulin Degludec [Tresiba]) 80 unit SQ HS [facility] Non-Formulary Medication (Prednisone [Prednisone 50 Mg Tablets]) 50 mg PO ONCE [facility] Ondansetron HCl (Zofran Injection) 4 mg IVPUSH Q6H PRN PRN Reason: NAUSEA Oxycodone HCl (Roxicodone -) 5 mg PO Q4H PRN PRN Reason: PAIN LEVEL 1-5 Oxycodone HCl (Roxicodone -) 10 mg PO Q4H PRN PRN Reason: PAIN LEVEL 6-10 Potassium Chloride (K-Dur -) 20 meq PO DAILY [facility] Promethazine HCl (Phenergan Injection -) 12.5 mg IVPB Q6H PRN PRN Reason: NAUSEA AND/OR VOMITING Gen: Awake and alert, NAD in cervical collar Heart: RRR Lung: decreased breath sounds at the bases, scattered rhonchi Abd: soft, nontender Ext: no edema Laboratory Results - last 24 hr 12/19/19 12/19/19 12/20/19 12:27 17:43 06:48 POC Glucometer 213 175 183 ASSESSMENT AND PLAN: Cervical Spondylosis s/p C4-C5 Corpectomy/Decompression/Reconstruction with cage and anterior plate HTN DM Asthma - Will discuss with Neurosurgery further plans - pain control - incentive spirometry - NPO for now - inhaled bronchodilators as needed - DVT prophylaxis - Symbicort BID Dr Pearson
[2019-12-20 11:27] LABS: BASO % 0.6 % (0-2.0); EOS % 0.1 % (0-4.5); HEMATOCRIT 40.3 % (32.4-45.2); HEMOGLOBIN 13.7 GM/dL (10.7-15.3); LYMPH % 5.8 % (8-40); MCH 31.8 pg (25.7-33.7); MCHC 33.8 g/dl (32.0-36.0); NEUT % 83.5 % (42.8-82.8); PLATELET COUNT 240 K/MM3 (134-434); RBC 4.29 M/mm3 (3.60-5.2); RDW 12.6 % (11.6-15.6); WHITE BLOOD COUNT 15.1 K/mm3 (4.0-10.0)
[2019-12-20 11:37] LABS: INR 1.07 (0.83-1.09); PROTHROMBIN TIME (PATIENT) 12.6 SEC (9.7-13.0)
[2019-12-20 11:57] LABS: ALBUMIN 3.2 g/dl (3.4-5.0); BILIRUBIN,TOTAL 0.8 mg/dL (0.2-1); BLOOD UREA NITROGEN 12.3 mg/dL (7-18); CALCIUM 8.9 mg/dL (8.5-10.1); CREATININE 0.5 mg/dL (0.55-1.3); POTASSIUM 3.3 mmol/L (3.5-5.1); TOT PROT 6.6 g/dl (6.4-8.2)
[2019-12-20] MEDS: FOLIC ACID 1 MG TABLET (FP) PO SCH (12:02)
[2019-12-20] MEDS: FERROUS SO4 325 MG TABLET (FP) PO SCH (12:03)
[2019-12-20] MEDS: POTASSIUM CHLORIDE TABS 20 MEQ TABLET.ER (FP) PO SCH (12:03)
[2019-12-20] MEDS: FUROSEMIDE 20 MG TABLET (FP) PO SCH (12:03)
[2019-12-20] MEDS: ASCORBIC ACID 500 MG TABLET (FP) PO SCH (12:04)
[2019-12-20] MEDS: LISINOPRIL 20 MG TABLET (FP) PO SCH (12:04)
[2019-12-20] MEDS: amLODIPine BESYLATE 10 MG TABLET (FP) PO SCH (12:06)
--- NOTE | 2019-12-20 12:18 | EKG ---
Test Reason : Blood Pressure : / mmHG Vent. Rate : 115 BPM Atrial Rate : 115 BPM P-R Int : 166 ms QRS Dur : 092 ms QT Int : 348 ms P-R-T Axes : 074 021 062 degrees QTc Int : 481 ms SINUS TACHYCARDIA WITH OCCASIONAL PREMATURE VENTRICULAR COMPLEXES NONSPECIFIC ST ABNORMALITY WHEN COMPARED WITH ECG OF 19-DEC-2019 15:28, PREMATURE VENTRICULAR COMPLEXES ARE NOW PRESENT Confirmed by BASSEM BRENNAN MD ([id number]) on 12/20/2019 12:17:46 PM Referred By: Carlton Fletcher Confirmed By:BASSEM BRENNAN MD
[2019-12-20] MEDS: MUPIROCIN 2% TOPICAL OINTMENT FOR DECOLONIZATION NS SCH ×2 (12:24→21:38)
[2019-12-20] MEDS ORDERED: POTASSIUM PHOSPHATE 15 MM in SODIUM CHLORIDE 250 ML IVPB ONE (13:00)
--- NOTE | 2019-12-20 13:32 | CON.CARD ---
Consult Consult Specialty:: Cardiology Referred by:: Niki Reason for Consultation:: Tachycardia - History of Present Illness Chief Complaint: tachycardia History of Present Illness: She is a 69 year old woman history of HTN, NIDDM, Asthma, Cervical Spondylosis s /p C4-C5 Corpectomy/Decompression/Reconstruction with cage and anterior plate 12/17/19, transferred to the ICU postop for mass due to soft tissue swelling. Noted with sinus tachycardia. Has some mild upper chest soreness increases with movement and inspiration. No palpitations. Also has some shortness of breath. No fever but feels hot and clammy. - History Source History Provided By: Medical Record - Alcohol/Substance Use Hx Alcohol Use: No - Smoking History Smoking history: Never smoked Home Medications - Allergies Allergies/Adverse Reactions: Allergies Allergy/AdvReac Type Severity Reaction Status Date / Time No Known Allergies Allergy Verified 12/17/19 07:17 - Home Medications Home Medications: Ambulatory Orders Albuterol Sulfate Inhaler - [Ventolin Hfa Inhaler -] 1 puff IH PRN PRN 12/16/19 Amlodipine Besylate/Benazepril [Lotrel ] 1 each PO DAILY 12/16/19 Ascorbic Acid [Vitamin C -] 1,000 mg PO DAILY 12/16/19 Aspirin [Ecotrin] 81 mg PO DAILY 12/16/19 Atorvastatin Ca [Lipitor] 20 mg PO HS 12/16/19 Budesonide/Formeterol Fumarate [SYMBICORT 160/4.5mcg -] 1 inh PO BID 12/16/19 Calcium Carbonate [Calcium] 500 mg PO DAILY 12/16/19 Cholecalciferol (Vitamin D3) [Vitamin D3] 2,000 unit PO DAILY 12/16/19 Furosemide [Lasix] 20 mg PO DAILY 12/16/19 Glucosamine/Chondr Choi A Sod [Osteo Bi-Flex Caplet] 1 each PO DAILY 12/16/19 Insulin Aspart [Novolog] 100 unit SQ ASDIR 12/16/19 Insulin Degludec [Tresiba] 80 unit SQ HS 12/16/19 Liraglutide [Victoza -] mg SQ HS 12/16/19 Magnesium 250 mg PO DAILY 12/16/19 Metformin HCl [Glucophage] 1,000 tab PO BID 12/16/19 Montelukast Sodium [Singulair] 10 mg PO HS 12/16/19 Multivitamins [Tab-A-Vit -] 1 tab PO DAILY 12/16/19 [place]-3 Fatty Acids/Fish Oil [Fish Oil 1,000 mg Capsule] 1 each PO DAILY Potassium Chloride 20 meq PO DAILY 12/16/19 Ubidecarenone [Coq-10] 100 mg PO DAILY 12/16/19 Prednisone [Prednisone 50 MG TABLETS] 50 mg PO ONCE 12/17/19 Vital Signs: Vital Signs Temperature 98.4 F 12/20/19 10:00 Pulse Rate 119 H 12/20/19 12:00 Respiratory Rate 12/20/19 12:00 Blood Pressure 154/84 12/20/19 12:00 O2 Sat by Pulse Oximetry (%) 95 12/20/19 09:00 - Other Data Labs, Other Data: CBC, BMP 12/20/19 11:06 12/20/19 11:06 INR, PTT INR 1.07 (0.83-1.09) 12/20/19 11:06 Troponin, BNP 12/20/19 11:06 Troponin I 0.03 Troponin, BNP 12/20/19 11:06 Troponin I 0.03 Imaging - Results Chest X-ray: Report Reviewed Cat Scan: Report Reviewed EKG: Report Reviewed Assessment/Plan She is a 69 year old woman history of HTN, NIDDM, Asthma, Cervical Spondylosis s/p C4-C5 Corpectomy/Decompression/Reconstruction with cage and anterior plate , transferred to the ICU postop for mass due to soft tissue swelling. Noted with sinus tachycardia and mild chest pain. Sinus tachycardia -she is immobile, postop and tachycardic, would consider PE workup if clinically indicated. -she has no evidence of ACS. Likely pleurisy or due to her hematoma. -no need for inpatient cardiac workup. -sinus tachycardia is a secondary disorder, treat underlying cause (eg, pain, emotion, PE, medication, anemia, fever etc). -call us with questions.
[2019-12-20] MEDS: oxyCODONE HCL 5 MG TABLET PO PRN ×2 (14:35→21:28)
--- NOTE | 2019-12-20 14:41 | PN ---
Physical Exam: SUBJECTIVE: Patient seen and examined in the morning today. Patient reports fall overnight as she was reaching for teabag. Overnight head CT was done which showed no acute changes. CT neck was done as patient was developing hematoma which showed patient is developing soft tissue swelling in the mid neck. Patient was transferred to ICU for further monitoring of airway. OBJECTIVE: Vital Signs Period Temp Pulse Resp BP Sys/Dotson Pulse Ox Last 24 Hr 97.6 F-98.8 F 61-123 18-22 145-165/80-99 95-95 GENERAL: The patient is awake, alert, and fully oriented, in discomfort. Has hoarse voice. HEAD: Normal with no signs of trauma. C-Collar in placed EYES: PERRL, extraocular movements intact, sclera anicteric, conjunctiva clear. No ptosis. ENT: Ears normal, nares patent, oropharynx clear without exudates, moist mucous membranes. NECK: Surgical site does not show drainage. Erythematous around site. Hematoma developing in anterior midline of neck. LUNGS: Decreased breath sound, however not using extrarespiratory muscles. HEART: Regular rate and rhythm, S1, S2 without murmur, rub or gallop. ABDOMEN: Soft, nontender, nondistended, normoactive bowel sounds EXTREMITIES: 2+ pulses, warm, well-perfused, no edema. PSYCH: Normal mood, normal affect. SKIN: Warm, dry Laboratory Results - last 24 hr 12/17/19 12/19/19 12/20/19 08:30 17:43 06:48 WBC RBC Hgb Hct MCV MCH MCHC RDW Plt Count MPV Absolute Neuts (auto) Neutrophils % Lymphocytes % Monocytes % Eosinophils % Basophils % Nucleated RBC % PT with INR INR Sodium Potassium Chloride Carbon Dioxide Anion Gap BUN Creatinine Est GFR (CKD-EPI)AfAm Est GFR (CKD-EPI)NonAf POC Glucometer 175 183 Random Glucose Calcium Total Bilirubin AST ALT Alkaline Phosphatase Creatine Kinase Creatine Kinase Index CK-MB (CK-2) Troponin I Total Protein Albumin Blood Type B POSITIVE Antibody Screen Negative Crossmatch See Detail 12/20/19 12/20/19 12/20/19 11:06 11:06 11:06 WBC 15.1 H RBC 4.29 Hgb 13.7 Hct 40.3 MCV 94.0 MCH 31.8 MCHC 33.8 RDW 12.6 Plt Count 240 MPV 8.0 Absolute Neuts (auto) 12.6 H Neutrophils % 83.5 H Lymphocytes % 5.8 L Monocytes % 10.0 Eosinophils % 0.1 D Basophils % 0.6 Nucleated RBC % 0 PT with INR 12.60 INR 1.07 Sodium 138 Potassium 3.3 L Chloride 99 Carbon Dioxide 32 Anion Gap 7 L BUN 12.3 Creatinine 0.5 L Est GFR (CKD-EPI)AfAm 113.65 Est GFR (CKD-EPI)NonAf 98.06 POC Glucometer Random Glucose 187 H Calcium 8.9 Total Bilirubin 0.8 AST 18 ALT 24 Alkaline Phosphatase 61 Creatine Kinase Creatine Kinase Index CK-MB (CK-2) Troponin I Total Protein 6.6 Albumin 3.2 L Blood Type Antibody Screen Crossmatch 12/20/19 12/20/19 11:06 12:31 WBC RBC Hgb Hct MCV MCH MCHC RDW Plt Count MPV Absolute Neuts (auto) Neutrophils % Lymphocytes % Monocytes % Eosinophils % Basophils % Nucleated RBC % PT with INR INR Sodium Potassium Chloride Carbon Dioxide Anion Gap BUN Creatinine Est GFR (CKD-EPI)AfAm Est GFR (CKD-EPI)NonAf POC Glucometer 167 Random Glucose Calcium Total Bilirubin AST ALT Alkaline Phosphatase Creatine Kinase 152 Creatine Kinase Index 1.4 CK-MB (CK-2) 2.2 Troponin I 0.03 Total Protein Albumin Blood Type Antibody Screen Crossmatch Active Medications Generic Name Dose Route Start Last Admin Trade Name Freq PRN Reason Stop Dose Admin Albuterol Sulfate 1 amp 12/20/19 09:46 Ventolin 0.083% Nebulizer Soln - NEB Q1H PRN SHORT OF BREATH/WHEEZING Albuterol Sulfate 1 puff 12/20/19 09:46 Ventolin Hfa Inhaler - IH Q6H PRN ASTHMA Amlodipine Besylate 10 mg 12/20/19 10:00 12/20/19 12:06 Norvasc - PO 10 mg DAILY KHADAR Administration Ascorbic Acid 1,000 mg 12/20/19 10:00 12/20/19 12:04 Vitamin C - PO 1,000 mg DAILY KHADAR Administration Atorvastatin Calcium 20 mg 12/20/19 22:00 Lipitor - PO HS [facility] Budesonide/Formoterol Fumarate 2 puff 12/20/19 10:00 Symbicort 160/4.5mcg - IH BID KHADAR Chlorhexidine Gluconate 1 applic 12/20/19 22:00 Hibiclens For Decolonization - TP HS [facility] Diphenhydramine HCl 25 mg 12/20/19 09:46 Benadryl - PO Q6H PRN FOR ITCHING Docusate Sodium 100 mg 12/20/19 14:00 Colace - PO TID [facility] Ferrous Sulfate 325 mg 12/20/19 10:00 12/20/19 12:03 Feosol - PO 325 mg DAILY KHADAR Administration Folic Acid 1 mg 12/20/19 10:00 12/20/19 12:02 Folic Acid - PO 1 mg DAILY [facility] Administration Furosemide 20 mg 12/20/19 10:00 12/20/19 12:03 Lasix - PO 20 mg DAILY [facility] Administration Cefazolin Sodium 1 gm/ 50 mls @ 100 mls/hr 12/20/19 10:00 12/20/19 12:02 Dextrose IVPB 100 mls/hr Q8H-IV [facility] Administration Potassium Phosphate 15 mm/ 255 mls @ 62.5 mls/hr 12/20/19 13:00 Sodium Chloride IVPB 12/20/19 17:04 ONCE ONE Insulin Aspart 1 vial 12/20/19 11:00 Novolog Vial Sliding Scale - SQ TIDAC [facility] Protocol Lisinopril 40 mg 12/20/19 10:00 12/20/19 12:04 Prinivil PO 40 mg DAILY [facility] Administration Montelukast Sodium 10 mg 12/20/19 22:00 Singulair - PO HS [facility] Mupirocin 1 applic 12/20/19 10:00 Bactroban Ointment (For Decolonization) - NS 12/25/19 09:59 BID [facility] Non-Formulary Medication 80 unit 12/20/19 22:00 Insulin Degludec [Tresiba] SQ HS [facility] Non-Formulary Medication 50 mg 12/20/19 09:46 Prednisone [Prednisone 50 Mg Tablets] PO ONCE [facility] Ondansetron HCl 4 mg 12/20/19 09:46 Zofran Injection IVPUSH Q6H PRN NAUSEA Oxycodone HCl 5 mg 12/20/19 09:46 Roxicodone - PO Q4H PRN PAIN LEVEL 1-5 Oxycodone HCl 10 mg 12/20/19 09:46 Roxicodone - PO Q4H PRN PAIN LEVEL 6-10 Potassium Chloride 20 meq 12/20/19 10:00 12/20/19 12:03 K-Dur - PO 20 meq DAILY [facility] Administration Promethazine HCl 12.5 mg 12/20/19 09:46 Phenergan Injection - IVPB Q6H PRN NAUSEA AND/OR VOMITING ASSESSMENT/PLAN: 69F PMH of DM, HTN, asthma, scoliosis with cervical spine and lumbar radiculopathy who present s/p C4-5 corpectomy with decompression of spondylosis and reconstruction with Peek cage and anterior plate. POD #3. Transferred to ICU due to worsening in character of voice and developing hematoma in neck. Neuro -Hx of cervical spine and lumbar spine radiculopathy s/p C4-5 corpectomy with decompression of spondylosis and reconstruction with Peek cage and anterior plate -POD #3 -Pain management : PRN oxy 5 and 10. -C-Collar must stay on atleast 23 hours a day. Cardiovascular -Hx of HTN and HLD -Tachycardia today, described chest pressure -EKG sinus tachycardia, rate of 115. QTC 481. -Continue home medications: lipitor, norvasc, lisinopril -CTA negative for PE -Cardiology consulted, appreciate recs Pulmonary -Patient has hx of Asthma, uses inhalers daily. Never hospitalized for asthma -Continue home meds: singulair, symbicort - ventolin inhaler and nebulizer - Encourage use of Incentive spirometer - On NC 2LPM, maintain sats >92% GI -no acute issues -NPO due to increasing hematoma -Continue to monitor Endo - Patient has hx of DM - ISS and ACHS monitoring - Insulin sliding scale Renal - No acute issues -Continue lasix DVT: Heparin SQ TID F: LR @100 ml/hr E: Monitor CMP N: NPO except for meds Lines: Peripheral IVs Dispo: We will continue to follow the patient. Thank you for this consultative opportunity. Visit type - Emergency Visit Emergency Visit: Yes ED Registration Date: 12/17/19 Care time: The patient presented to the Emergency Department on the above date and was hospitalized for further evaluation of their emergent condition. - New Patient This patient is new to me today: No - Critical Care Critical Care patient: Yes Total Critical Care Time (in minutes): 35 Critical Care Statement: The care of this patient involved high complexity decision making to prevent further life threatening deterioration of the patient 's condition and/or to evaluate & treat vital organ system(s) failure or risk of failure. ATTENDING PHYSICIAN STATEMENT I saw and evaluated the patient. I reviewed the resident's note and discussed the case with the resident. I agree with the resident's findings and plan as documented. SUBJECTIVE: OBJECTIVE: ASSESSMENT AND PLAN:
--- NOTE | 2019-12-20 15:43 | EKG ---
Test Reason : Blood Pressure : / mmHG Vent. Rate : 118 BPM Atrial Rate : 118 BPM P-R Int : 168 ms QRS Dur : 088 ms QT Int : 336 ms P-R-T Axes : 068 011 044 degrees QTc Int : 470 ms SINUS TACHYCARDIA NO PREVIOUS ECGS AVAILABLE Confirmed by BASSEM BRENNAN MD ([id number]) on 12/20/2019 3:43:09 PM Referred By: Carlton Fletcher Confirmed By:BASSEM BRENNAN MD
[2019-12-20] MEDS: BUDESONIDE/FORMETEROL FUMARATE 160/4.5 mcg INHALER IH SCH ×2 (17:49→21:37)
[2019-12-20] MEDS: MONTELUKAST NA 10 MG TABLET PO SCH (21:29)
[2019-12-20] MEDS: ATORVASTATIN CA 20 MG TABLET (FP) PO SCH (21:29)
[2019-12-20] MEDS: CHLORHEXIDINE GLUCONATE 4% CLEANSER FOR DECOLONIZATION TP SCH (21:29)
[2019-12-20] MEDS ORDERED: INSULIN DEGLUDEC 80 UNIT SQ SCH (22:00)
[2019-12-21] MEDS ORDERED: ceFAZolin SODIUM 1 GM VIAL ONE ×3 (01:30→17:20)
[2019-12-21] MEDS ORDERED: DEXTROSE 5%-WATER - 50 ML IVPB ONE ×3 (01:31→17:20)
[2019-12-21] MEDS: CEFAZOLIN 1 GM in DEXTROSE 5%-WATER - 50 ML IVPB SCH ×3 (01:33→17:30)
[2019-12-21] MEDS: DOCUSATE SODIUM 100 MG CAPSULE (FP) PO SCH ×3 (05:17→22:04)
[2019-12-21] MEDS: INSULIN SLIDING SCALE (NOVOLOG) 1 VIAL SQ SCH ×3 (06:34→17:16)
[2019-12-21 07:02] LABS: BASO % 0.2 % (0-2.0); HEMATOCRIT 39.5 % (32.4-45.2); HEMOGLOBIN 13.4 GM/dL (10.7-15.3); MCH 31.7 pg (25.7-33.7); MCHC 33.9 g/dl (32.0-36.0); MEAN CELL VOLUME 93.5 fl (80-96); MEAN PLT VOLUME 8.2 fl (7.5-11.1); MONO % 10.2 % (3.8-10.2); NEUT % 84.6 % (42.8-82.8); PLATELET COUNT 277 K/MM3 (134-434); RBC 4.23 M/mm3 (3.60-5.2); RDW 12.7 % (11.6-15.6); WHITE BLOOD COUNT 13.8 K/mm3 (4.0-10.0)
--- NOTE | 2019-12-21 07:27 | PN ---
Progress Note (short form) - Note Progress Note: PULM/CCM Pt Seen & Examined in the ICU. CA+OX3, reports feeling better, no obvious SOB or stridor. Post-Op pain under good control. ACTIVE MEDS: Albuterol Sulfate (Ventolin 0.083% Nebulizer Soln -) 1 amp NEB Q1H PRN PRN Reason: SHORT OF BREATH/WHEEZING Albuterol Sulfate (Ventolin Hfa Inhaler -) 1 puff IH Q6H PRN PRN Reason: ASTHMA Amlodipine Besylate (Norvasc -) 10 mg PO DAILY [facility] Last Admin: 12/20/19 12:06 Dose: 10 mg Ascorbic Acid (Vitamin C -) 1,000 mg PO DAILY [facility] Last Admin: 12/20/19 12:04 Dose: 1,000 mg Atorvastatin Calcium (Lipitor -) 20 mg PO HS [facility] Last Admin: 12/20/19 21:29 Dose: 20 mg Budesonide/Formoterol Fumarate (Symbicort 160/4.5mcg -) 2 puff IH BID [facility] Last Admin: 12/20/19 21:37 Dose: 2 puff Chlorhexidine Gluconate (Hibiclens For Decolonization -) 1 applic TP [facility] Last Admin: 12/20/19 21:29 Dose: 1 applic Diphenhydramine HCl (Benadryl -) 25 mg PO Q6H PRN PRN Reason: FOR ITCHING Docusate Sodium (Colace -) 100 mg PO TID [facility] Last Admin: 12/21/19 05:17 Dose: Not Given Ferrous Sulfate (Feosol -) 325 mg PO DAILY [facility] Last Admin: 12/20/19 12:03 Dose: 325 mg Folic Acid (Folic Acid -) 1 mg PO DAILY [facility] Last Admin: 12/20/19 12:02 Dose: 1 mg Furosemide (Lasix -) 20 mg PO DAILY [facility] Last Admin: 12/20/19 12:03 Dose: 20 mg Cefazolin Sodium 1 gm/ (Dextrose) 50 mls @ 100 mls/hr IVPB Q8H-IV [facility] Last Admin: 12/21/19 01:33 Dose: 100 mls/hr Insulin Aspart (Novolog Vial Sliding Scale -) 1 vial SQ TIDAC [facility]; Protocol Last Admin: 12/21/19 06:34 Dose: Not Given Lisinopril (Prinivil) 40 mg PO DAILY [facility] Last Admin: 12/20/19 12:04 Dose: 40 mg Methyl Salicylate (Shemar-Forde -) 1 applic TP BID [facility] Montelukast Sodium (Singulair -) 10 mg PO HS [facility] Last Admin: 12/20/19 21:29 Dose: 10 mg Mupirocin (Bactroban Ointment (For Decolonization) -) 1 applic NS BID [facility] Stop: 12/25/19 09:59 Last Admin: 12/20/19 21:38 Dose: 1 applic Non-Formulary Medication (Insulin Degludec [Tresiba]) 80 unit SQ HS [facility] Non-Formulary Medication (Prednisone [Prednisone 50 Mg Tablets]) 50 mg PO ONCE [facility] Ondansetron HCl (Zofran Injection) 4 mg IVPUSH Q6H PRN PRN Reason: NAUSEA Oxycodone HCl (Roxicodone -) 5 mg PO Q4H PRN PRN Reason: PAIN LEVEL 1-5 Last Admin: 12/20/19 21:28 Dose: 5 mg Oxycodone HCl (Roxicodone -) 10 mg PO Q4H PRN PRN Reason: PAIN LEVEL 6-10 Potassium Chloride (K-Dur -) 20 meq PO DAILY [facility] Last Admin: 12/20/19 12:03 Dose: 20 meq Promethazine HCl (Phenergan Injection -) 12.5 mg IVPB Q6H PRN PRN Reason: NAUSEA AND/OR VOMITING Vital Signs Period Temp Pulse Resp BP Sys/Dotson Pulse Ox Last 24 Hr 98 F-98.5 F 111-124 14-22 137-174/78-98 95 Intake & Output 12/18/19 12/19/19 12/20/19 12/21/19 23:59 23:59 23:59 23:59 Intake Total 2700 1250 300 50 Output Total 1375 2300 1350 400 Balance 1325 -1050 -1050 -350 Weight 79.379 kg 76.657 kg 73.6 kg GEN: Well nourished 69 y/o woman, CA+OX3, conversant, pleasant, NAD HEENT: PERRL, an-icteric, MMM, C-Collar in place NECK: Stable hematoma at anterior midline of neck - slight erythema around surgical site but no drainage PULM: diminished in the bases CV: nml S1, S2, RR, unable to appreciate any G/M/R ABD: + BS, S/S N/T N/D X4Q EXT: + Pulses, WWPX4, (-) edema SKIN: No obvious rashes lesions or ulcers CBC, BMP 12/21/19 05:30 12/21/19 05:30 RECENT STUDIES TO NOTE: CTA CHEST 12/20: No CT evidence of pulmonary embolism. Mild bilateral upper lower lung field groundglass parenchymal attenuation is noted which may be due to small airway disease. 3 x 2.4 cm left adrenal nodule as noted above. There is partial imaging of a 0.5 x 1.4 cm right perirenal structure as discussed above. CT HEAD 12/20: No CT evidence of acute intracranial pathology. There has been no definite interval change in comparison to a CT exam of 12/17/2019. As described in the previous exam there is minimal to mild prominence of the posterior nasopharyngeal soft tissues. ENT consultation is suggested. CT C-Spine 12/19: Status post corpectomy of C4 and C5 vertebral bodies and anterior fusion of C3-C6 in satisfactory alignment. Low-attenuation soft tissue swelling in the right mid neck, anteriorly has worsened since the prior examination as well as interval significant prevertebral soft tissue swelling extending down to C7 level. However, there is interval decrease soft tissue air and interval removal of the drainage catheter. Correlate clinically and if indicated correlation with contrast enhanced CT scan or MRI is needed to rule out a collection or an infectious process/abscess ASSESS: Cervical Spondylosis s/p C4-C5 Corpectomy/Decompression/Reconstruction with cage and anterior plate HTN DM Asthma PLAN: - Supp FiO2 prn - Nebs - Symbicort BID - IS - Maintain C-Collar - Pain control - Can Advance Diet slowly as tolerated - FSs - SSI prn - Cont IV Cefazolin q8 - Cont anti-HTN meds - BR - DVT prophylaxis - F/u w/ Neurosurgery BOSS. ACNP-BC [facility] ICU PULM/CCM [id number]
[2019-12-21 07:33] LABS: ALBUMIN 3.3 g/dl (3.4-5.0); BILIRUBIN,TOTAL 0.5 mg/dL (0.2-1); BLOOD UREA NITROGEN 21.7 mg/dL (7-18); CREATININE 0.6 mg/dL (0.55-1.3); MAGNESIUM 2.6 mg/dL (1.8-2.4); POTASSIUM 3.7 mmol/L (3.5-5.1)
[2019-12-21] MEDS ORDERED: PT OWN MED DRAWER 7, Y5N ONE ×2 (09:18→17:20)
[2019-12-21] MEDS: MUPIROCIN 2% TOPICAL OINTMENT FOR DECOLONIZATION NS SCH ×2 (09:28→22:05)
[2019-12-21] MEDS: FERROUS SO4 325 MG TABLET (FP) PO SCH (09:29)
[2019-12-21] MEDS: FOLIC ACID 1 MG TABLET (FP) PO SCH (09:29)
[2019-12-21] MEDS: LISINOPRIL 20 MG TABLET (FP) PO SCH (09:30)
[2019-12-21] MEDS: ASCORBIC ACID 500 MG TABLET (FP) PO SCH (09:30)
[2019-12-21] MEDS: POTASSIUM CHLORIDE TABS 20 MEQ TABLET.ER (FP) PO SCH (09:31)
[2019-12-21] MEDS: FUROSEMIDE 20 MG TABLET (FP) PO SCH (09:31)
[2019-12-21] MEDS: amLODIPine BESYLATE 10 MG TABLET (FP) PO SCH (09:31)
[2019-12-21] MEDS: BUDESONIDE/FORMETEROL FUMARATE 160/4.5 mcg INHALER IH SCH ×2 (09:32→22:03)
[2019-12-21] MEDS: METHYL SALICYLATE/MENTHOL OINT 30 GM TUBE TP SCH ×2 (17:31→22:05)
[2019-12-21] MEDS ORDERED: HYDROmorphone HCl 2 MG/ML VIAL IVPUSH ONE (20:09)
--- NOTE | 2019-12-21 20:29 | PN ---
Progress Note, Physician Chief Complaint: Asthma S/P C4-5 corpectomy with decompresson of spondylosis and reconstruction with Peek cage and anterior plate complicated by soft tissue swelling of the neck resulting in stridor Cervical spondylosis - Current Medication List Current Medications: Active Medications Albuterol Sulfate (Ventolin 0.083% Nebulizer Soln -) 1 amp NEB Q1H PRN PRN Reason: SHORT OF BREATH/WHEEZING Albuterol Sulfate (Ventolin Hfa Inhaler -) 1 puff IH Q6H PRN PRN Reason: ASTHMA Amlodipine Besylate (Norvasc -) 10 mg PO DAILY [facility] Last Admin: 12/21/19 09:31 Dose: 10 mg Ascorbic Acid (Vitamin C -) 1,000 mg PO DAILY [facility] Last Admin: 12/21/19 09:30 Dose: 1,000 mg Atorvastatin Calcium (Lipitor -) 20 mg PO HS [facility] Last Admin: 12/20/19 21:29 Dose: 20 mg Budesonide/Formoterol Fumarate (Symbicort 160/4.5mcg -) 2 puff IH BID [facility] Last Admin: 12/21/19 09:32 Dose: 2 puff Chlorhexidine Gluconate (Hibiclens For Decolonization -) 1 applic TP HS [facility] Last Admin: 12/20/19 21:29 Dose: 1 applic Diphenhydramine HCl (Benadryl -) 25 mg PO Q6H PRN PRN Reason: FOR ITCHING Docusate Sodium (Colace -) 100 mg PO TID [facility] Last Admin: 12/21/19 15:39 Dose: 100 mg Ferrous Sulfate (Feosol -) 325 mg PO DAILY [facility] Last Admin: 12/21/19 09:29 Dose: 325 mg Folic Acid (Folic Acid -) 1 mg PO DAILY [facility] Last Admin: 12/21/19 09:29 Dose: 1 mg Furosemide (Lasix -) 20 mg PO DAILY [facility] Last Admin: 12/21/19 09:31 Dose: 20 mg Cefazolin Sodium 1 gm/ (Dextrose) 50 mls @ 100 mls/hr IVPB Q8H-IV [facility] Last Admin: 12/21/19 17:30 Dose: 100 mls/hr Insulin Aspart (Novolog Vial Sliding Scale -) 1 vial SQ TIDAC [facility]; Protocol Last Admin: 12/21/19 17:16 Dose: 4 units Lisinopril (Prinivil) 40 mg PO DAILY [facility] Last Admin: 12/21/19 09:30 Dose: 40 mg Methyl Salicylate (Shemar-Forde -) 1 applic TP BID [facility] Last Admin: 12/21/19 17:31 Dose: Not Given Montelukast Sodium (Singulair -) 10 mg PO HS [facility] Last Admin: 12/20/19 21:29 Dose: 10 mg Mupirocin (Bactroban Ointment (For Decolonization) -) 1 applic NS BID [facility] Stop: 12/25/19 09:59 Last Admin: 12/21/19 09:28 Dose: 1 applic Non-Formulary Medication (Insulin Degludec [Tresiba]) 80 unit SQ HS [facility] Non-Formulary Medication (Prednisone [Prednisone 50 Mg Tablets]) 50 mg PO ONCE [facility] Ondansetron HCl (Zofran Injection) 4 mg IVPUSH Q6H PRN PRN Reason: NAUSEA Oxycodone HCl (Roxicodone -) 5 mg PO Q4H PRN PRN Reason: PAIN LEVEL 1-5 Last Admin: 12/20/19 21:28 Dose: 5 mg Oxycodone HCl (Roxicodone -) 10 mg PO Q4H PRN PRN Reason: PAIN LEVEL 6-10 Potassium Chloride (K-Dur -) 20 meq PO DAILY [facility] Last Admin: 12/21/19 09:31 Dose: 20 meq Promethazine HCl (Phenergan Injection -) 12.5 mg IVPB Q6H PRN PRN Reason: NAUSEA AND/OR VOMITING - Objective Vital Signs: Vital Signs Temperature 98.6 F 12/21/19 16:00 Pulse Rate 117 H 12/21/19 18:00 Respiratory Rate 22 H 12/21/19 18:00 Blood Pressure 157/90 12/21/19 18:00 O2 Sat by Pulse Oximetry (%) 95 12/20/19 09:30 Labs: CBC, BMP 12/21/19 05:30 12/21/19 05:30 INR, PTT INR 1.07 (0.83-1.09) 12/20/19 11:06
[2019-12-21] MEDS: CHLORHEXIDINE GLUCONATE 4% CLEANSER FOR DECOLONIZATION TP SCH (22:04)
[2019-12-21] MEDS: MONTELUKAST NA 10 MG TABLET PO SCH (22:04)
[2019-12-21] MEDS: ATORVASTATIN CA 20 MG TABLET (FP) PO SCH (22:05)
[2019-12-22] MEDS ORDERED: DEXTROSE 5%-WATER - 50 ML IVPB ONE ×3 (00:34→17:30)
[2019-12-22] MEDS ORDERED: ceFAZolin SODIUM 1 GM VIAL ONE ×3 (00:34→17:29)
[2019-12-22] MEDS: CEFAZOLIN 1 GM in DEXTROSE 5%-WATER - 50 ML IVPB SCH ×3 (01:12→17:43)
[2019-12-22] MEDS: DOCUSATE SODIUM 100 MG CAPSULE (FP) PO SCH ×3 (06:10→21:50)
[2019-12-22] MEDS: INSULIN SLIDING SCALE (NOVOLOG) 1 VIAL SQ SCH ×3 (06:11→17:40)
[2019-12-22] MEDS ORDERED: PT OWN MED DRAWER 7, Y5N ONE (09:05)
[2019-12-22] MEDS: FUROSEMIDE 20 MG TABLET (FP) PO SCH (09:27)
[2019-12-22] MEDS: POTASSIUM CHLORIDE TABS 20 MEQ TABLET.ER (FP) PO SCH (09:27)
[2019-12-22] MEDS: LISINOPRIL 20 MG TABLET (FP) PO SCH (09:27)
[2019-12-22] MEDS: FOLIC ACID 1 MG TABLET (FP) PO SCH (09:27)
[2019-12-22] MEDS: ASCORBIC ACID 500 MG TABLET (FP) PO SCH (09:27)
[2019-12-22] MEDS: FERROUS SO4 325 MG TABLET (FP) PO SCH (09:27)
[2019-12-22] MEDS: amLODIPine BESYLATE 10 MG TABLET (FP) PO SCH (09:28)
[2019-12-22] MEDS: BUDESONIDE/FORMETEROL FUMARATE 160/4.5 mcg INHALER IH SCH ×2 (09:28→21:53)
[2019-12-22] MEDS: MUPIROCIN 2% TOPICAL OINTMENT FOR DECOLONIZATION NS SCH ×2 (09:28→21:56)
[2019-12-22] MEDS: METHYL SALICYLATE/MENTHOL OINT 30 GM TUBE TP SCH ×2 (09:29→21:51)
[2019-12-22 13:21] VITALS: BMI 33.6
--- NOTE | 2019-12-22 15:42 | PN ---
Progress Note (short form) - Note Progress Note: Progress Notes Pulm/CCM Pt seen and examined in the ICU. A+O x3. No c/o pain, numbness, tingling. OOB. Cerviacl collar in place. Tolerating po liquids. Active Medications Albuterol Sulfate (Ventolin 0.083% Nebulizer Soln -) 1 amp NEB Q1H PRN PRN Reason: SHORT OF BREATH/WHEEZING Albuterol Sulfate (Ventolin Hfa Inhaler -) 1 puff IH Q6H PRN PRN Reason: ASTHMA Amlodipine Besylate (Norvasc -) 10 mg PO DAILY [facility] Last Admin: 12/22/19 09:28 Dose: 10 mg Ascorbic Acid (Vitamin C -) 1,000 mg PO DAILY [facility] Last Admin: 12/22/19 09:27 Dose: 1,000 mg Atorvastatin Calcium (Lipitor -) 20 mg PO HS [facility] Last Admin: 12/21/19 22:05 Dose: 20 mg Budesonide/Formoterol Fumarate (Symbicort 160/4.5mcg -) 2 puff IH BID [facility] Last Admin: 12/22/19 09:28 Dose: 2 puff Chlorhexidine Gluconate (Hibiclens For Decolonization -) 1 applic TP [facility] Last Admin: 12/21/19 22:04 Dose: 1 applic Diphenhydramine HCl (Benadryl -) 25 mg PO Q6H PRN PRN Reason: FOR ITCHING Docusate Sodium (Colace -) 100 mg PO TID [facility] Last Admin: 12/22/19 14:51 Dose: 100 mg Ferrous Sulfate (Feosol -) 325 mg PO DAILY [facility] Last Admin: 12/22/19 09:27 Dose: 325 mg Folic Acid (Folic Acid -) 1 mg PO DAILY [facility] Last Admin: 12/22/19 09:27 Dose: 1 mg Furosemide (Lasix -) 20 mg PO DAILY [facility] Last Admin: 12/22/19 09:27 Dose: 20 mg Cefazolin Sodium 1 gm/ (Dextrose) 50 mls @ 100 mls/hr IVPB Q8H-IV [facility] Last Admin: 12/22/19 09:26 Dose: 100 mls/hr Insulin Aspart (Novolog Vial Sliding Scale -) 1 vial SQ TIDAC [facility]; Protocol Last Admin: 12/22/19 12:08 Dose: 6 units Lisinopril (Prinivil) 40 mg PO DAILY [facility] Last Admin: 12/22/19 09:27 Dose: 40 mg Methyl Salicylate (Shemar-Forde -) 1 applic TP BID [facility] Last Admin: 12/22/19 09:29 Dose: Not Given Montelukast Sodium (Singulair -) 10 mg PO HS [facility] Last Admin: 12/21/19 22:04 Dose: 10 mg Mupirocin (Bactroban Ointment (For Decolonization) -) 1 applic NS BID [facility] Stop: 12/25/19 09:59 Last Admin: 12/22/19 09:28 Dose: 1 applic Non-Formulary Medication (Insulin Degludec [Tresiba]) 80 unit SQ HS [facility] Non-Formulary Medication (Prednisone [Prednisone 50 Mg Tablets]) 50 mg PO ONCE [facility] Ondansetron HCl (Zofran Injection) 4 mg IVPUSH Q6H PRN PRN Reason: NAUSEA Oxycodone HCl (Roxicodone -) 5 mg PO Q4H PRN PRN Reason: PAIN LEVEL 1-5 Last Admin: 12/20/19 21:28 Dose: 5 mg Oxycodone HCl (Roxicodone -) 10 mg PO Q4H PRN PRN Reason: PAIN LEVEL 6-10 Potassium Chloride (K-Dur -) 20 meq PO DAILY [facility] Last Admin: 12/22/19 09:27 Dose: 20 meq Promethazine HCl (Phenergan Injection -) 12.5 mg IVPB Q6H PRN PRN Reason: NAUSEA AND/OR VOMITING Vital Signs Period Temp Pulse Resp BP Sys/Dotson Pulse Ox Last 24 Hr 98.6 F-98.9 F 102-120 12-22 147-168/69-98 95-95 Intake & Output 12/19/19 12/20/19 12/21/19 12/22/19 23:59 23:59 23:59 23:59 Intake Total 1250 300 150 210 Output Total 2300 1350 1400 Balance -1050 -1050 -1250 210 Weight 76.657 kg 73.6 kg 73.028 kg GEN: Well nourished 69 y/o woman, CA+OX3, conversant, pleasant, NAD HEENT: PERRL, an-icteric, MMM, C-Collar in place NECK: Stable hematoma at anterior midline of neck - slight erythema around surgical site but no drainage PULM: diminished in the bases CV: nml S1, S2, RR, unable to appreciate any G/M/R ABD: + BS, S/S N/T N/D X4Q EXT: + Pulses, WWPX4, (-) edema SKIN: No obvious rashes lesions or ulcers CBC, BMP 12/21/19 05:30 12/21/19 05:30 RECENT STUDIES TO NOTE: CTA CHEST 12/20: No CT evidence of pulmonary embolism. Mild bilateral upper lower lung field groundglass parenchymal attenuation is noted which may be due to small airway disease. 3 x 2.4 cm left adrenal nodule as noted above. There is partial imaging of a 0.5 x 1.4 cm right perirenal structure as discussed above. CT HEAD 12/20: No CT evidence of acute intracranial pathology. There has been no definite interval change in comparison to a CT exam of 12/17/2019. As described in the previous exam there is minimal to mild prominence of the posterior nasopharyngeal soft tissues. ENT consultation is suggested. CT C-Spine 12/19: Status post corpectomy of C4 and C5 vertebral bodies and anterior fusion of C3-C6 in satisfactory alignment. Low-attenuation soft tissue swelling in the right mid neck, anteriorly has worsened since the prior examination as well as interval significant prevertebral soft tissue swelling extending down to C7 level. However, there is interval decrease soft tissue air and interval removal of the drainage catheter. Correlate clinically and if indicated correlation with contrast enhanced CT scan or MRI is needed to rule out a collection or an infectious process/abscess ASSESS: Cervical Spondylosis s/p C4-C5 Corpectomy/Decompression/Reconstruction with cage and anterior plate HTN DM Asthma PLAN: - Supp FiO2 prn - Nebs - Symbicort BID - IS - Maintain C-Collar - Pain control - Can Advance Diet slowly as tolerated - FSs - SSI prn - Cont IV Cefazolin q8 - Cont anti-HTN meds - BR - DVT prophylaxis - F/u w/ Neurosurgery Celia Abreu, ACN- Additional CC's: Rogerio Pearson
--- NOTE | 2019-12-22 17:57 | PN ---
Progress Note, Physician Chief Complaint: Asthma S/P C4-5 corpectomy with decompresson of spondylosis and reconstruction with Peek cage and anterior plate complicated by soft tissue swelling of the neck resulting in stridor Cervical spondylosis - Current Medication List Current Medications: Active Medications Albuterol Sulfate (Ventolin 0.083% Nebulizer Soln -) 1 amp NEB Q1H PRN PRN Reason: SHORT OF BREATH/WHEEZING Albuterol Sulfate (Ventolin Hfa Inhaler -) 1 puff IH Q6H PRN PRN Reason: ASTHMA Amlodipine Besylate (Norvasc -) 10 mg PO DAILY [facility] Last Admin: 12/22/19 09:28 Dose: 10 mg Ascorbic Acid (Vitamin C -) 1,000 mg PO DAILY [facility] Last Admin: 12/22/19 09:27 Dose: 1,000 mg Atorvastatin Calcium (Lipitor -) 20 mg PO HS [facility] Last Admin: 12/21/19 22:05 Dose: 20 mg Budesonide/Formoterol Fumarate (Symbicort 160/4.5mcg -) 2 puff IH BID [facility] Last Admin: 12/22/19 09:28 Dose: 2 puff Chlorhexidine Gluconate (Hibiclens For Decolonization -) 1 applic TP HS [facility] Last Admin: 12/21/19 22:04 Dose: 1 applic Diphenhydramine HCl (Benadryl -) 25 mg PO Q6H PRN PRN Reason: FOR ITCHING Docusate Sodium (Colace -) 100 mg PO TID [facility] Last Admin: 12/22/19 14:51 Dose: 100 mg Ferrous Sulfate (Feosol -) 325 mg PO DAILY [facility] Last Admin: 12/22/19 09:27 Dose: 325 mg Folic Acid (Folic Acid -) 1 mg PO DAILY [facility] Last Admin: 12/22/19 09:27 Dose: 1 mg Furosemide (Lasix -) 20 mg PO DAILY [facility] Last Admin: 12/22/19 09:27 Dose: 20 mg Cefazolin Sodium 1 gm/ (Dextrose) 50 mls @ 100 mls/hr IVPB Q8H-IV [facility] Last Admin: 12/22/19 17:43 Dose: 100 mls/hr Insulin Aspart (Novolog Vial Sliding Scale -) 1 vial SQ TIDAC [facility]; Protocol Last Admin: 12/22/19 17:40 Dose: 4 units Lisinopril (Prinivil) 40 mg PO DAILY [facility] Last Admin: 12/22/19 09:27 Dose: 40 mg Methyl Salicylate (Shemar-Forde -) 1 applic TP BID [facility] Last Admin: 12/22/19 09:29 Dose: Not Given Montelukast Sodium (Singulair -) 10 mg PO HS [facility] Last Admin: 12/21/19 22:04 Dose: 10 mg Mupirocin (Bactroban Ointment (For Decolonization) -) 1 applic NS BID [facility] Stop: 12/25/19 09:59 Last Admin: 12/22/19 09:28 Dose: 1 applic Non-Formulary Medication (Insulin Degludec [Tresiba]) 80 unit SQ HS [facility] Non-Formulary Medication (Prednisone [Prednisone 50 Mg Tablets]) 50 mg PO ONCE [facility] Ondansetron HCl (Zofran Injection) 4 mg IVPUSH Q6H PRN PRN Reason: NAUSEA Oxycodone HCl (Roxicodone -) 5 mg PO Q4H PRN PRN Reason: PAIN LEVEL 1-5 Last Admin: 12/20/19 21:28 Dose: 5 mg Oxycodone HCl (Roxicodone -) 10 mg PO Q4H PRN PRN Reason: PAIN LEVEL 6-10 Potassium Chloride (K-Dur -) 20 meq PO DAILY [facility] Last Admin: 12/22/19 09:27 Dose: 20 meq Promethazine HCl (Phenergan Injection -) 12.5 mg IVPB Q6H PRN PRN Reason: NAUSEA AND/OR VOMITING - Objective Vital Signs: Vital Signs Temperature 98.9 F 12/22/19 06:00 Pulse Rate 110 H 12/22/19 15:07 Respiratory Rate 16 12/22/19 15:07 Blood Pressure 147/98 12/22/19 15:07 O2 Sat by Pulse Oximetry (%) 95 12/22/19 07:52 Labs: CBC, BMP 12/21/19 05:30 12/21/19 05:30 INR, PTT INR 1.07 (0.83-1.09) 12/20/19 11:06
[2019-12-22] MEDS: ATORVASTATIN CA 20 MG TABLET (FP) PO SCH (21:50)
[2019-12-22] MEDS: MONTELUKAST NA 10 MG TABLET PO SCH (21:50)
[2019-12-22] MEDS: CHLORHEXIDINE GLUCONATE 4% CLEANSER FOR DECOLONIZATION TP SCH (21:51)
[2019-12-23] MEDS ORDERED: ceFAZolin SODIUM 1 GM VIAL ONE (03:15)
[2019-12-23] MEDS ORDERED: DEXTROSE 5%-WATER - 50 ML IVPB ONE (03:15)
[2019-12-23] MEDS: CEFAZOLIN 1 GM in DEXTROSE 5%-WATER - 50 ML IVPB SCH (03:29)
[2019-12-23] MEDS: DOCUSATE SODIUM 100 MG CAPSULE (FP) PO SCH ×2 (06:19→15:13)
[2019-12-23] MEDS: INSULIN SLIDING SCALE (NOVOLOG) 1 VIAL SQ SCH ×3 (06:19→16:43)
--- NOTE | 2019-12-23 08:25 | PN ---
Progress Note (short form) - Note Progress Note: POD#3 Pt with no complaints she has been tolerating a clear diet and denies any dyspnea, sob or difficulty swallowing. She denies any CP, SOB, N/V, fever or chills. Vital Signs Temp 97.8 F 12/23/19 05:00 Pulse 109 H 12/23/19 07:00 Resp 19 12/23/19 07:00 BP 172/81 H 12/23/19 07:00 Pulse Ox 100 12/22/19 20:25 Intake & Output 12/22/19 12/22/19 12/23/19 11:59 23:59 11:59 Intake Total 210 150 50 Output Total 800 700 Balance 210 -650 -650 Weight 161 lb 2.526 oz 161 lb 163 lb 5.8 oz Intake: IVPB 50 150 50 Oral 160 Output: Urine 800 700 External Catheter 800 700 Other: Voiding Method External Catheter External Catheter # Unmeasured Voids External Catheter 1 Bowel Movement No No No Height 4 ft 10 in Body Mass Index (BMI) 33.6 Weight Measurement Method Built in [facility] Built in [facility] GEN: A&0x3, NAD Neck: no change since PA exam on Monday, no evidence of expanding hematoma. incision c/d/i with surrounding tissue firmness and ecchymosis, palpable mass to incision approximately 2x2cm around the length and lateral to the incision. No stridor. [place] collar in place. Unlabored resp on RA CV: RR tachycardia Neuro: moving all ext x 4, ambulating CBC, BMP 12/21/19 05:30 12/21/19 05:30 Problem List - Problems (1) S/P cervical spinal fusion Assessment/Plan: POD#6 with stable hematoma. -soft diet, advance as tolerated -OOB as tolerated -Ecnourage daily IS -C-Collar 23 hr/day -D/c planning for home today Evaluation and plan discussed with Dr Fletcher Code(s): Z98.1 - ARTHRODESIS STATUS (2) Hematoma complicating a procedure Code(s): JJO4715 -
--- NOTE | 2019-12-23 08:46 | PN ---
Progress Note, Physician - Current Medication List Current Medications: Active Medications Albuterol Sulfate (Ventolin 0.083% Nebulizer Soln -) 1 amp NEB Q1H PRN PRN Reason: SHORT OF BREATH/WHEEZING Albuterol Sulfate (Ventolin Hfa Inhaler -) 1 puff IH Q6H PRN PRN Reason: ASTHMA Amlodipine Besylate (Norvasc -) 10 mg PO DAILY [facility] Last Admin: 12/22/19 09:28 Dose: 10 mg Ascorbic Acid (Vitamin C -) 1,000 mg PO DAILY [facility] Last Admin: 12/22/19 09:27 Dose: 1,000 mg Atorvastatin Calcium (Lipitor -) 20 mg PO [facility] Last Admin: 12/22/19 21:50 Dose: 20 mg Budesonide/Formoterol Fumarate (Symbicort 160/4.5mcg -) 2 puff IH BID [facility] Last Admin: 12/22/19 21:53 Dose: 2 puff Chlorhexidine Gluconate (Hibiclens For Decolonization -) 1 applic TP [facility] Last Admin: 12/22/19 21:51 Dose: 1 applic Diphenhydramine HCl (Benadryl -) 25 mg PO Q6H PRN PRN Reason: FOR ITCHING Docusate Sodium (Colace -) 100 mg PO TID [facility] Last Admin: 12/23/19 06:19 Dose: 100 mg Ferrous Sulfate (Feosol -) 325 mg PO DAILY [facility] Last Admin: 12/22/19 09:27 Dose: 325 mg Folic Acid (Folic Acid -) 1 mg PO DAILY [facility] Last Admin: 12/22/19 09:27 Dose: 1 mg Furosemide (Lasix -) 20 mg PO DAILY [facility] Last Admin: 12/22/19 09:27 Dose: 20 mg Cefazolin Sodium 1 gm/ (Dextrose) 50 mls @ 100 mls/hr IVPB Q8H-IV [facility] Last Admin: 12/23/19 03:29 Dose: 100 mls/hr Insulin Aspart (Novolog Vial Sliding Scale -) 1 vial SQ TIDAC [facility]; Protocol Last Admin: 12/23/19 06:19 Dose: 4 units Lisinopril (Prinivil) 40 mg PO DAILY [facility] Last Admin: 12/22/19 09:27 Dose: 40 mg Methyl Salicylate (Shemar-Forde -) 1 applic TP BID [facility] Last Admin: 12/22/19 21:51 Dose: Not Given Montelukast Sodium (Singulair -) 10 mg PO HS [facility] Last Admin: 12/22/19 21:50 Dose: 10 mg Mupirocin (Bactroban Ointment (For Decolonization) -) 1 applic NS BID [facility] Stop: 12/25/19 09:59 Last Admin: 12/22/19 21:56 Dose: 1 applic Non-Formulary Medication (Insulin Degludec [Tresiba]) 80 unit SQ HS [facility] Non-Formulary Medication (Prednisone [Prednisone 50 Mg Tablets]) 50 mg PO ONCE [facility] Ondansetron HCl (Zofran Injection) 4 mg IVPUSH Q6H PRN PRN Reason: NAUSEA Oxycodone HCl (Roxicodone -) 5 mg PO Q4H PRN PRN Reason: PAIN LEVEL 1-5 Last Admin: 12/20/19 21:28 Dose: 5 mg Oxycodone HCl (Roxicodone -) 10 mg PO Q4H PRN PRN Reason: PAIN LEVEL 6-10 Potassium Chloride (K-Dur -) 20 meq PO DAILY [facility] Last Admin: 12/22/19 09:27 Dose: 20 meq Promethazine HCl (Phenergan Injection -) 12.5 mg IVPB Q6H PRN PRN Reason: NAUSEA AND/OR VOMITING - Objective Vital Signs: Vital Signs Temperature 97.8 F 12/23/19 05:00 Pulse Rate 109 H 12/23/19 07:00 Respiratory Rate 19 12/23/19 07:00 Blood Pressure 172/81 H 12/23/19 07:00 O2 Sat by Pulse Oximetry (%) 100 12/22/19 20:25 HENT: Yes: Other (hematoma softer) Cardiovascular: Yes: Regular Rate and Rhythm Respiratory: Yes: Regular, CTA Bilaterally Gastrointestinal: Yes: Normal Bowel Sounds, Soft Labs: CBC, BMP 12/21/19 05:30 12/21/19 05:30 INR, PTT INR 1.07 (0.83-1.09) 12/20/19 11:06 Problem List - Problems (1) Hematoma complicating a procedure Assessment/Plan: voice better monitor Code(s): [id number] - (2) Asthma Assessment/Plan: -Pulmonary consult -bronchodilators -Symbicort -Singulair -O2 via face mask -keep Spo2 >90% Code(s): J45.909 - UNSPECIFIED ASTHMA, UNCOMPLICATED (3) Cervical radiculopathy Assessment/Plan: -Neurosurgery on board -S/P C4 and C5 corpectomy with decompression of spondylosis and reconstruction with Peek cage and anterior plate -pain control -c-collar -C-spine CT scan shows s/p corpectomy c4 and c5 vertebral body and anterior fusion c3-c6 in satisfactory alignment, fusion of C6-C7 vertebral body and posterior element Code(s): M54.12 - RADICULOPATHY, CERVICAL REGION Code(s): M54.12 - RADICULOPATHY, CERVICAL REGION (4) Diabetes mellitus Assessment/Plan: -Metformin -ISS -Tresiba -HgA1c Code(s): E11.9 - TYPE 2 DIABETES MELLITUS WITHOUT COMPLICATIONS (5) HTN (hypertension) Assessment/Plan: -Lisinopril, Amlodipine Code(s): I10 - ESSENTIAL (PRIMARY) HYPERTENSION (6) Status post fall Assessment/Plan: CT HEAD NAD Code(s): Z91.81 - HISTORY OF FALLING Assessment/Plan Physical therapy
[2019-12-23] MEDS: FERROUS SO4 325 MG TABLET (FP) PO SCH (09:47)
[2019-12-23] MEDS: ASCORBIC ACID 500 MG TABLET (FP) PO SCH (09:47)
[2019-12-23] MEDS: FUROSEMIDE 20 MG TABLET (FP) PO SCH (09:48)
[2019-12-23] MEDS: POTASSIUM CHLORIDE TABS 20 MEQ TABLET.ER (FP) PO SCH (09:48)
[2019-12-23] MEDS: LISINOPRIL 20 MG TABLET (FP) PO SCH (09:49)
[2019-12-23] MEDS: FOLIC ACID 1 MG TABLET (FP) PO SCH (09:49)
[2019-12-23] MEDS: amLODIPine BESYLATE 10 MG TABLET (FP) PO SCH (09:49)
[2019-12-23] MEDS ORDERED: PT OWN MED DRAWER 7, Y5N ONE (09:54)
[2019-12-23] MEDS: BUDESONIDE/FORMETEROL FUMARATE 160/4.5 mcg INHALER IH SCH (09:55)
[2019-12-23] MEDS: MUPIROCIN 2% TOPICAL OINTMENT FOR DECOLONIZATION NS SCH (09:56)
[2019-12-23] MEDS: METHYL SALICYLATE/MENTHOL OINT 30 GM TUBE TP SCH (09:59)
[2019-12-23 11:39] LABS: HEMATOCRIT 40.9 % (32.4-45.2); HEMOGLOBIN 13.5 GM/dL (10.7-15.3); MCH 31.3 pg (25.7-33.7); MCHC 33.1 g/dl (32.0-36.0); MEAN CELL VOLUME 94.8 fl (80-96); MEAN PLT VOLUME 8.2 fl (7.5-11.1); PLATELET COUNT 305 K/MM3 (134-434); RBC 4.32 M/mm3 (3.60-5.2); RDW 12.7 % (11.6-15.6); WHITE BLOOD COUNT 12.7 K/mm3 (4.0-10.0)
--- NOTE | 2019-12-23 11:54 | PN ---
Teaching Attending Note Name of Resident: Rob Lowry ATTENDING PHYSICIAN STATEMENT I saw and evaluated the patient. I reviewed the resident's note and discussed the case with the resident. I agree with the resident's findings and plan as documented. SUBJECTIVE: Patient seen and examined in the ICU. Feels overall better. No acute events overnight. Intake & Output 12/20/19 12/21/19 12/22/19 12/23/19 23:59 23:59 23:59 23:59 Intake Total 300 150 360 50 Output Total 1350 1400 800 700 Balance -1050 -1250 -440 -650 Weight 169 lb 162 lb 4.163 oz 161 lb 163 lb 5.8 oz Last Vital Signs Temp Pulse Resp BP Pulse Ox 97.7 F 101 H 16 145/85 100 12/23/19 09:00 12/23/19 11:00 12/23/19 11:00 12/23/19 11:00 12/23/19 08:47 Active Medications Albuterol Sulfate (Ventolin 0.083% Nebulizer Soln -) 1 amp NEB Q1H PRN PRN Reason: SHORT OF BREATH/WHEEZING Albuterol Sulfate (Ventolin Hfa Inhaler -) 1 puff IH Q6H PRN PRN Reason: ASTHMA Amlodipine Besylate (Norvasc -) 10 mg PO DAILY [facility] Last Admin: 12/23/19 09:49 Dose: 10 mg Ascorbic Acid (Vitamin C -) 1,000 mg PO DAILY [facility] Last Admin: 12/23/19 09:47 Dose: 1,000 mg Atorvastatin Calcium (Lipitor -) 20 mg PO [facility] Last Admin: 12/22/19 21:50 Dose: 20 mg Budesonide/Formoterol Fumarate (Symbicort 160/4.5mcg -) 2 puff IH BID [facility] Last Admin: 12/23/19 09:55 Dose: 2 puff Chlorhexidine Gluconate (Hibiclens For Decolonization -) 1 applic TP [facility] Last Admin: 12/22/19 21:51 Dose: 1 applic Cyclobenzaprine HCl (Cyclobenzaprine Hcl) 5 mg PO TID [facility] Docusate Sodium (Colace -) 100 mg PO TID [facility] Last Admin: 12/23/19 06:19 Dose: 100 mg Ferrous Sulfate (Feosol -) 325 mg PO DAILY [facility] Last Admin: 12/23/19 09:47 Dose: 325 mg Folic Acid (Folic Acid -) 1 mg PO DAILY [facility] Last Admin: 12/23/19 09:49 Dose: 1 mg Furosemide (Lasix -) 20 mg PO DAILY [facility] Last Admin: 12/23/19 09:48 Dose: 20 mg Insulin Aspart (Novolog Vial Sliding Scale -) 1 vial SQ TIDAC [facility]; Protocol Last Admin: 12/23/19 11:27 Dose: 12 units Lisinopril (Prinivil) 40 mg PO DAILY [facility] Last Admin: 12/23/19 09:49 Dose: 40 mg Methyl Salicylate (Shemar-Forde -) 1 applic TP BID [facility] Last Admin: 12/23/19 09:59 Dose: Not Given Montelukast Sodium (Singulair -) 10 mg PO HS [facility] Last Admin: 12/22/19 21:50 Dose: 10 mg Mupirocin (Bactroban Ointment (For Decolonization) -) 1 applic NS BID [facility] Stop: 12/25/19 09:59 Last Admin: 12/23/19 09:56 Dose: 1 applic Non-Formulary Medication (Insulin Degludec [Tresiba]) 80 unit SQ [facility] Potassium Chloride (K-Dur -) 20 meq PO DAILY [facility] Last Admin: 12/23/19 09:48 Dose: 20 meq GEN: Well nourished 69 y/o woman, CA+OX3, conversant, pleasant, NAD HEENT: PERRL, an-icteric, MMM, C-Collar in place NECK: Stable hematoma at anterior midline of neck - slight erythema around surgical site but no drainage PULM: diminished in the bases CV: nml S1, S2, RR, unable to appreciate any G/M/R ABD: + BS, S/S N/T N/D X4Q EXT: + Pulses, WWPX4, (-) edema SKIN: No obvious rashes lesions or ulcers Laboratory Results - last 24 hr 12/22/19 12/22/19 12/23/19 12:02 17:11 06:17 WBC RBC Hgb Hct MCV MCH MCHC RDW Plt Count MPV POC Glucometer 259 226 227 12/23/19 12/23/19 09:43 11:07 WBC 12.7 H RBC 4.32 Hgb 13.5 Hct 40.9 MCV 94.8 MCH 31.3 MCHC 33.1 RDW 12.7 Plt Count 305 MPV 8.2 POC Glucometer 414 ASSESS: Cervical Spondylosis s/p C4-C5 Corpectomy/Decompression/Reconstruction with cage and anterior plate HTN DM Asthma PLAN: - Supp FiO2 prn - Nebs - Symbicort BID - IS - Maintain C-Collar - Pain control - Can Advance Diet slowly as tolerated - FSs - SSI prn - Cont IV Cefazolin q8 - Cont anti-HTN meds - BR - DVT prophylaxis - F/u w/ Neurosurgery - DC planning Dr Pearson
[2019-12-23] MEDS: CYCLOBENZAPRINE HCL 5 MG TABLET PO SCH ×2 (12:03→15:13)
[2019-12-23 12:11] LABS: ALBUMIN 2.9 g/dl (3.4-5.0); BILIRUBIN,TOTAL 0.9 mg/dL (0.2-1); BLOOD UREA NITROGEN 14.3 mg/dL (7-18); CALCIUM 8.7 mg/dL (8.5-10.1); CREATININE 0.8 mg/dL (0.55-1.3); MAGNESIUM 2.2 mg/dL (1.8-2.4); PHOSPHOROUS 2.5 mg/dL (2.5-4.9); POTASSIUM 3.6 mmol/L (3.5-5.1); TOT PROT 6.4 g/dl (6.4-8.2)
--- NOTE | 2019-12-23 14:23 | CONSULT ---
Admitting History and Physical - Smoking History Smoking history: Never smoked - Alcohol/Substance Use Hx Alcohol Use: No History - Admission Reason For Visit: CERVICAL SPONDYLOSIS - Hearing Hearing: Normal Speech Evaluation - Communication Primary Language: LITHUANIAN Communication: Yes: Within Normal Limits, Simple Responses Oral Expression Ability: Yes: No Impairment - Speech Production Apraxia: No Able to Make Needs Known: Yes: WNL Intelligibility: Yes: WNL - Speech Characteristics Voice Loudness: Normal Voice Pitch: Yes: Mildly Low Speech Pattern: Normal Nasal Resonance: Normal Articulation: Yes: Precise Dysfluency: Yes: Tonic Rate of Speech: Intact Voice Comment: Vocal quality is functional for the environment with speech parameters WNL. - Language/Auditory Comprehension Follows: Yes: 1 Stage Simple Commands (WFL), 2 Stage Simple Commands (WFL) Observation: Able to respond to yes/no queries: Yes, Yes/No Confusion: No, Comprehends Conversational Speech: Yes, Benefits from Slow Speech: No, Benefits from Repetiton: No, Benefits from Increased Volume of Speech: No - Language/Verbal Expression Able to Respond to Simple Queries: Yes: WNL Able to Communicate Wants and Needs: Yes: WNL Functional Communication Status: Yes: WNL Aware of Errors: Yes Attempts to Correct Errors: No Use of Gestures: Yes Written Expression: not examine Oral Expression: WFL Reading Comprehension: not examine Calculations: not examine - Memory/Perception ferry terminal supervisor Memory: Yes: WNL - Swallow Evaluation/Bedside Assessment Current Nutritional Intake: Soft (essentially regular solids), Thin Liquids Oral Secretions: Yes: WFL Tracheostomy Present: No Patient on Ventilator: No Dentition: Yes: Adequate Facial Symmetry at Rest: Symmetrical Facial Symmetry on Retraction: Symmetrical Facial Movement: Controlled Sensation: Normal Facial Comment: Oral and facial features are WFL for speech & swallow purposes. Jaw Position: Closed at Rest Against Resistance Opening: Normal Against Resistance Closing: Normal Pucker Lips: Normal Smile: Normal Lips, Comment: WFL for speech & swallow purposes. Lingual Movement: Normal Lingual Speed of Movement: Normal Lingual Movement Strgth Against Opposition: Normal Lingual Movement Characteristics: Normal Lingual Comment: WFL for speech & swallow purposes. Soft Palate Description: Normal Color Hard Palate Description: Normal Color Bite Reflex: Present Velopharyngeal Movement: Normal Laryngeal Elevation: WFL Laryngeal Movement: Able to Palpate Needs Assistance: Yes Rate of Intake: WFL Bolus Size: WFL Labial Seal: WFL Chewing: WFL Oral Prep Time: WFL A-P Transit: WFL Timing of Swallow: WFL Coughing/Throat Clear: No Change in Voice: No Other Findings/Remarks: 69 yo female seen at chairside on unit with family members present (spouse and daughter) for this session. Pt is verbal, A&Ox3 cooperative. Pt presents with PMHX includes, asthma, HTN, DM s/p corpectomy cage (C4-C5) with cervical collar in place. Vocal quality is functional for the environment with speech parameters WNL. Volitional airway protection (without bolus) and swallow is WNL. Pt did mention a weak vocal quality since the surgery but getting progressively better as corpectomy was one week ago. Current diet soft solids with thin liquids Pt given PO trials mechanical soft solids, regular solids without assistance revealed, adequate bolus formation and A P transport with a timely pharyngeal swallow (1-2 second average). No change in voicing or respiration after the swallow. Pt given PO trials of thin liquids via cup and straw without assistance revealed good acceptance, adequate labial containment / bolus control and, A P transport with a timely pharyngeal swallow (1-2 second average). No change in voicing or respiration after the swallow. Recommendations - Speech Evaluation, Impression/Plan Impression: 69 yo female presents with the oral and pharyngeal swallow is adequate for po intake of soft regular solids and thin liquids. Labial containment, mastication, bolus transport, and initiation of swallow were WNL. No coughing or changes in voicing to suggest penetration / aspiration at bedside at this time. Speech and language are within WFL for her environment. Pt reports that speech is "getting better" s/p one week ago. Recommended Therapies: Speech, Volume Detention Goals: Tolerate the least restrictive solid and liquid consistencies without s/s of penetration / aspiration. Vocal quality improvement Short Term Goals: Tolerate pureed, soft solids with thin liquids w/o s/s of aspiration. - Disposition Discharge to: To be Determined - Dysphagia Impressions/Plan Swallowing Skills: WFL Dysphagia Impressions: No Impairment *Silent aspiration: cannot be R/O at bedside Dysphagia Treatment Plan: Safe Rate, OOB for meals, OOB for 1 h. after meals Dysphagia Evaluation Summary: Continue po intake of regular solids with thin liquids at tolerated. Observe standard aspiration precautions. Provide oral care before and after meals. Medications can be given crushed with applesauce or whole with liquids. Results given verbally to charge account clerk and PCP via chart. [facility] to follow up for diet tolerance. - Recommendations Diet Consistency: Regular, 1 - 2 Soft Items Medication Administration: Whole with water Liquids: Thin Liquids
[2019-12-23 16:02] VITALS: TEMP 97.8
--- NOTE | 2019-12-23 16:23 | PN ---
Physical Exam: SUBJECTIVE: Patient seen and examined BRIAN Thinks her hoaraseness has improved. Neck swelling is unchanged. OBJECTIVE: Vital Signs Period Temp Pulse Resp BP Sys/Dotson Pulse Ox Last 24 Hr 97.7 F-98.4 F 83-114 14-24 132-172/57-85 100-100 GENERAL: Awake, alert, and fully oriented, in mild distress. HEAD: Normal with no signs of trauma. NECK: Normal range of motion, supple without lymphadenopathy, JVD, or masses. Neck brace in place, anterior neck w/ Right base ecchymosis, not tense. LUNGS: Breath sounds equal, clear to auscultation bilaterally but decreased at the bases. HEART: Regular rate and rhythm, normal S1 and S2 without murmur, rub or gallop. ABDOMEN: Absent bowel sounds, no guarding, no rebound, no masses. No hepatomegaly or splenomegaly. MUSCULOSKELETAL: Normal range of motion at all joints. No bony deformities or tenderness. No CVA tenderness. UPPER EXTREMITIES: 2+ pulses, warm, well-perfused. No cyanosis. No clubbing. Cap refill <2 seconds. No peripheral edema. LOWER EXTREMITIES: 2+ pulses, warm, well-perfused. No calf tenderness. No peripheral edema. NEUROLOGICAL: Cranial nerves II-XII intact. 5/5 strength b/l in upper and lower extremities. PSYCHIATRIC: Cooperative. Good eye contact. SKIN: Warm, dry, normal turgor, no rashes or lesions noted. Laboratory Results - last 24 hr 12/22/19 12/23/19 12/23/19 17:11 06:17 09:43 WBC 12.7 H RBC 4.32 Hgb 13.5 Hct 40.9 MCV 94.8 MCH 31.3 MCHC 33.1 RDW 12.7 Plt Count 305 MPV 8.2 Sodium Potassium Chloride Carbon Dioxide Anion Gap BUN Creatinine Est GFR (CKD-EPI)AfAm Est GFR (CKD-EPI)NonAf POC Glucometer 226 227 Random Glucose Calcium Phosphorus Magnesium Total Bilirubin AST ALT Alkaline Phosphatase Total Protein Albumin 12/23/19 12/23/19 09:43 11:07 WBC RBC Hgb Hct MCV MCH MCHC RDW Plt Count MPV Sodium 138 Potassium 3.6 Chloride 96 L Carbon Dioxide 35 H Anion Gap 7 L BUN 14.3 Creatinine 0.8 Est GFR (CKD-EPI)AfAm 86.57 Est GFR (CKD-EPI)NonAf 74.70 POC Glucometer 414 Random Glucose 392 H Calcium 8.7 Phosphorus 2.5 Magnesium 2.2 Total Bilirubin 0.9 AST 15 ALT 28 Alkaline Phosphatase 68 Total Protein 6.4 Albumin 2.9 L Active Medications Generic Name Dose Route Start Last Admin Trade Name Freq PRN Reason Stop Dose Admin Albuterol Sulfate 1 amp 12/20/19 09:46 Ventolin 0.083% Nebulizer Soln - NEB Q1H PRN SHORT OF BREATH/WHEEZING Albuterol Sulfate 1 puff 12/20/19 09:46 Ventolin Hfa Inhaler - IH Q6H PRN ASTHMA Amlodipine Besylate 10 mg 12/20/19 10:00 12/23/19 09:49 Norvasc - PO 10 mg DAILY KHADAR Administration Ascorbic Acid 1,000 mg 12/20/19 10:00 12/23/19 09:47 Vitamin C - PO 1,000 mg DAILY KHADAR Administration Atorvastatin Calcium 20 mg 12/20/19 22:00 12/22/19 21:50 Lipitor - PO 20 mg HS KHADAR Administration Budesonide/Formoterol Fumarate 2 puff 12/20/19 10:00 12/23/19 09:55 Symbicort 160/4.5mcg - IH 2 puff BID KHADAR Administration Chlorhexidine Gluconate 1 applic 12/20/19 22:00 12/22/19 21:51 Hibiclens For Decolonization - TP 1 applic HS KHADAR Administration Cyclobenzaprine HCl 5 mg 12/23/19 11:47 12/23/19 15:13 Cyclobenzaprine Hcl PO Not Given TID KHADAR Docusate Sodium 100 mg 12/20/19 14:00 12/23/19 15:13 Colace - PO 100 mg TID KHADAR Administration Ferrous Sulfate 325 mg 12/20/19 10:00 12/23/19 09:47 Feosol - PO 325 mg DAILY KHADAR Administration Folic Acid 1 mg 12/20/19 10:00 12/23/19 09:49 Folic Acid - PO 1 mg DAILY KHADAR Administration Furosemide 20 mg 12/20/19 10:00 12/23/19 09:48 Lasix - PO 20 mg DAILY KHADAR Administration Insulin Aspart 1 vial 12/20/19 11:00 12/23/19 11:27 Novolog Vial Sliding Scale - SQ 12 units TIDAC KHADAR Administration Protocol Lisleopril 40 mg 12/20/19 10:00 12/23/19 09:49 Prinivil PO 40 mg DAILY KHADAR Administration Methyl Salicylate 1 applic 12/21/19 10:00 12/23/19 09:59 Shemar-Forde - TP Not Given BID KHADAR Montelukast Sodium 10 mg 12/20/19 22:00 12/22/19 21:50 Singulair - PO 10 mg HS KHADAR Administration Mupirocin 1 applic 12/20/19 10:00 12/23/19 09:56 Bactroban Ointment (For Decolonization) - NS 12/25/19 09:59 1 applic BID KHADAR Administration Non-Formulary Medication 80 unit 12/20/19 22:00 Insulin Degludec [Tresiba] SQ HS [facility] Potassium Chloride 20 meq 12/20/19 10:00 12/23/19 09:48 K-Dur - PO 20 meq DAILY KHADAR Administration ASSESSMENT/PLAN: 69F PMH of DM, HTN, asthma, scoliosis with cervical spine and lumbar radiculopathy who present s/p C4-5 corpectomy with decompression of spondylosis and reconstruction with Peek cage and anterior plate. POD #6, sustatined a GLF with trauma to the anterior neck after striking furniture. CTH, CT cspine showing soft-tissue swelling concerning for hematoma. Primary team planning for discharge on 12/23/19 Neuro -Cervical hematoma after GLF -Hx of cervical spine and lumbar spine radiculopathy -POD #6 s/p C4-C5 corpectomy with decompression of spondylosis and reconstruction -Neurochecks -C-Collar as per NSX Cardiovascular -Hx of HTN and HLD -Continue home medications: ASA, lipitor, norvasc, lisinopril -Continue to monitor Pulmonary -Patient has hx of Asthma, uses inhalers daily. Never hospitalized for asthma -Continue home meds: singulair, symbicort - ventolin inhaler and nebulizer - Encourage use of Incentive spirometer GI -no acute issues -tolerating soft diet. no gas or BM yet - Continue to monitor Endo - Patient has hx of DM - ISS and ACHS monitoring Renal - No acute issues - bun/cr 14.3/0.8 - Continue lasix DVT: SCD F: none E: Monitor CMP N: Soft diabetic diet Visit type - Emergency Visit Emergency Visit: No - New Patient This patient is new to me today: Yes Date on this admission: 12/23/19 - Critical Care Critical Care patient: Yes Total Critical Care Time (in minutes): 35 Critical Care Statement: The care of this patient involved high complexity decision making to prevent further life threatening deterioration of the patient 's condition and/or to evaluate & treat vital organ system(s) failure or risk of failure. ATTENDING PHYSICIAN STATEMENT I saw and evaluated the patient. I reviewed the resident's note and discussed the case with the resident. I agree with the resident's findings and plan as documented. SUBJECTIVE: OBJECTIVE: ASSESSMENT AND PLAN:
[2019-12-23 17:05] VITALS: BP 126/75; PULSE 108
--- NOTE | 2019-12-26 16:02 | SURG ---
Surgery Assistant [employer]'S Soccer [employer] Note Assistant Women'S Soccer Coach: Bk Chaney PA-C Date of Service: 12/17/19 Diagnosis: Cervical spondylotic myelopathy with Klippel-Feil Syndrome Procedure: 1. Interbody Cage (corpectomy) 2. Exploration of Spinal Fusion 3. C3 Caudal hemicorpectomy with resection of Osteophytes and Posterior Longitudinal ligament (Technically challenging) 4. C4 Corpectomy with resection of Osteophytes and posterior longitudinal ligament (technically challenging) 5. C5 Corpectomy with resection of Osteophytes and posterior longitudinal ligament (technically challenging) 6. C6 Rostral Hemicorpectomy with resection of Osteophytes and posterior longitudinal ligament (technically challenging) 7. Anterior instrumentation C3-6 (technically challenging) 8. Fluoroscopy 9. Microdissection 10. C3/4 arthrodesis 11. C4/5 arthrodesis 12. C5/6 arthrodesis 13. Local autograft 14. Deformity Correction (christianity of lordosis) I was present for the entirety of the operative procedure. For further detail, please refer to operative report. Visit type - Case Type Case Type: Scheduled - Emergency Emergency Visit: No - New patient This patient is new to me today: Yes Date on this admission: 12/26/19 - Critical Care Critical Care patient: No
== END 2019-12-23 18:00 | disposition home or self-care (01) | DRG 472 ==
LOC: JSAMEDAYSX 12-17 06:23 → JICU 12-17 16:59 → J8W 12-18 22:00 → JICU 12-20 09:22
PROVIDERS: ADMIT Family Medicine; ATTEND Family Medicine
PROC: 0RG20A0 Fusion of 2 or more Cervical Vertebral Joints with Interbody Fusion Device, Anterior Approach, Anterior Column, Open Approach (ICD-10-PCS; principal; 2019-12-17 08:00)
DX: M40.209 Unspecified kyphosis, site unspecified (principal); L76.32 Postprocedural hematoma of skin and subcutaneous tissue following other procedure; M47.12 Other spondylosis with myelopathy, cervical region; M54.12 Radiculopathy, cervical region; Q76.1 Klippel-Feil syndrome; I10 Essential (primary) hypertension; E11.40 Type 2 diabetes mellitus with diabetic neuropathy, unspecified; J45.909 Unspecified asthma, uncomplicated; E78.5 Hyperlipidemia, unspecified
CPT/HCPCS: 36415; 70450-TC; 71275-TC; 72125-TC; 76000-TC-FY; 80048; 80053; 82550; 82553; 82962; 83735; 84100; 84484; 85025; 85027; 85610; 86850; 86900; 86901; 86922; 93005; 93010; 94640; 94760; 97116-GP; 97162-GP; J1644; Q9967